=== PATIENT | male | born 1945 | race Caucasian/White ===

== ENCOUNTER → 2017-02-19 | Outpatient (CLI) | payer OTHER, MEDICARE ==
[2017-02-19 16:30] LABS: ALT/SGPT 22 U/L (12-78); AST/SGOT 13 U/L (15-37); BLOOD UREA NITROGEN 22 mg/dl (7-18); BUN/CREATININE RATIO 25.3 (10-20); CALCIUM 8.9 mg/dl (8.5-10.1); CARBON DIOXIDE 32 mmol/L (21-32); CHLORIDE 101 mmol/L (98-107); CREATININE 0.87 mg/dl (0.60-1.40); GLUCOSE 84 mg/dl (70-99); POTASSIUM 3.4 mmol/L (3.5-5.1); SODIUM 139 mmol/L (136-145)
[2017-02-19 16:33] LABS: ALB/GLOB RATIO 1.1 (0.9-2); ALKALINE PHOSPHATASE 109 U/L (45-117)
== END | disposition home or self-care (01) ==
LOC: C.LAB1850 14:47
PROVIDERS: ATTEND Internal Medicine
DX: R31.0 Gross hematuria (principal); N35.9 Urethral stricture, unspecified; R33.9 Retention of urine, unspecified; R60.0 Localized edema

== ENCOUNTER → 2017-03-27 | Outpatient (CLI) | payer OTHER, MEDICARE ==
[~2017-03-27] MED LIST: CIPR1TAB11 PO; HLD.5 PO; LCTX PO; MULT-506 PO; OXYC-57 PO; PHEN-876 PO; SERT-234 PO; SULF800T23 PO
--- NOTE | 2017-03-30 14:24 | CODING QUERY NO DIAGNOSIS ---
TREATMENT RENDERED WITHOUT A DIAGNOSIS 44 To promote full compliance with coding requirements relating to patient care, physician participation is requested in all cases of protein purification scientist uncertainty. Please assist us with providing a diagnosis/symptom for the test(s) below: A diagnosis/symptom was not documented on your Order. A valid diagnosis/symptom is required to bill all insurances. Please remember that we are unable to code a diagnosis of rule out, probable, possible, questionable, or suspected. DOS 03/27/17 Tests that require a diagnosis: * URINE C&S DIAGNOSIS: Provider Signature: Date: Thank you Tia Fitzgerald Health Information Management Once completed, please kindly fax back to [phone] For questions please call [phone]
== END | disposition home or self-care (01) ==
LOC: C.LABSPEC 16:28
PROVIDERS: ATTEND Internal Medicine
DX: R39.9 Unspecified symptoms and signs involving the genitourinary system (principal)

== ENCOUNTER → 2017-04-20 | Outpatient (CLI) | payer OTHER, MEDICARE | END | disposition home or self-care (01) | LOC: C.LABSPEC 13:07 | PROVIDERS: ATTEND Internal Medicine | DX: R39.9 Unspecified symptoms and signs involving the genitourinary system (principal) ==

== ENCOUNTER → 2017-04-23 | Outpatient (CLI) | payer OTHER, MEDICARE | END | disposition home or self-care (01) | LOC: C.LABSPEC 15:30 | PROVIDERS: ATTEND Internal Medicine | DX: N39.0 Urinary tract infection, site not specified (principal) ==

== ENCOUNTER 2017-05-13 14:46 | Emergency (ER) | payer OTHER, MEDICARE ==
[~2017-05-13] VITALS: Ht 177.8 cm; Wt 69.5 kg
[2017-05-13 15:14] VITALS: TEMP 36.6; Ht 177.8 cm; Wt 69.5 kg
--- NOTE | 2017-05-13 16:09 | EMERGENCY ROOM VISIT NOTE ---
History Report prepared by Yesenia: Hair Donis Under the Supervision of: Dr. Vineet Vargas M.D. First contact with patient: 15:59 Chief Complaint: CATHETER REPLACEMENT Stated Complaint: SUPER PUBIC CATHERTER FELL OUT History of Present Illness The patient is a 71 year old male who presents to the Emergency Room with complaints of a persistent need for a suprapubic Venegas catheter replacement today. Per the patient's caregiver, the patient has had a suprapubic catheter for "years", and gets it changed every month by [facility]. However, this morning, the catheter popped out and home care could not get in back in. The patient states that he has no pain at the moment. He just finished an antibiotic a week ago for a UTI. Source of History: patient, caregiver Onset: Today Position: other (suprapubic - Venegas catheter) Symptom Intensity: catheter fell out Quality: other (needs replacement) Timing: other (persistent need) Note: Pt denies pain. Review of Systems See HPI for pertinent positives & negatives. A total of 6 systems reviewed and were otherwise negative. Past Medical & Surgical Medical Problems: (1) Suprapubic catheter Family History Family history limited secondary to patient's advanced age. Social History Smoking Status: Never Smoker Smokeless Tobacco Use: No Marital Status: Occupation Status: retired Current/Historical Medications Scheduled Sertraline (Zoloft), 100 MG PO DAILY Allergies Coded Allergies: No Known Allergies (Unverified , 05/13/17) Physical Exam Vital Signs Date Time Temp Pulse Resp B/P (MAP) Pulse Ox O2 Delivery O2 Flow Rate FiO2 05/13/17 17:10 78 16 159/94 97 05/13/17 15:14 36.6 78 20 159/103 97 Room Air Physical Exam GENERAL: Patient is chronically unwell appearing and cachectic appearing, in no distress. HEENT: No acute trauma, normocephalic atraumatic, mucous membranes moist, no nasal congestion, no scleral icterus. NECK: No stridor, no adenopathy, no meningismus, trachea is midline. ABDOMEN: Soft, nontender, has urostomy port suprapubic region, no drainage, no tenderness, no erythema, no swelling. EXTREMITIES: Normal motion all extremities, no cyanosis, no edema. NEUROLOGIC: Alert and oriented, no acute motor or sensory deficits, no focal weakness, cranial nerves grossly intact. SKIN: No rash, no jaundice, no diaphoresis. Medical Decision & Procedures ED Course 1603: The patient was evaluated in room C1B. A complete history and physical exam was performed. 1621: I discussed the patient with Dr. Jered ECHOLS urology - says normal Venegas cather 16 [place]an. Lay patient flat, clean with Betadine, insert, no need for antibiotics. 1635: After multiple attempts I was able to get a 10-[place]an Venegas catheter in suprapubic region. Both the 16 and 14 failed secondary to inflammation of suprapubic port. 1655: Reevaluated the patient and he is resting comfortably. Discussed results and discharge instructions: he verbalized understanding and agreement. The patient is ready for discharge. Medical Decision 71 yr old male with suprapubic catheter that was accidently torn out with resultant pop of balloon (or did balloon pop first). Attempted replacement by daughter though unable to do so, then attempted by home health nurse without success. I attempted to place 16, then 14 without success due to edema of urostomy area. I was able to successfully place 10F. This was done in sterile approach with betadine copious cleansing. Soft nontender abdomen and urine obtained from cathether which was easily placed atraumatically. Suspect swelling secondary to irritation due to cath being pulled out. Patient stable without complaints. With venegas in place urine is clear with some sediment. Just finished round abx and no UTI symptoms thus will hold off on abx for now. Given small venegas I suspect it will not last long and might clog up or accidently get pulled out (small 3ml balloon) and thus I feel he will need to see Urology sooner rather than later to have this replaced by them, but I do not feel it necessary to bring them in to ED on a Sunday afternoon at this time. Reviewed symptoms to monitor with daughter/patient. Advised calling Uro in am to set up appointment. Medication Reconcilliation Current Medication List: was personally reviewed by me Blood Pressure Screening Patient's blood pressure: Elevated blood pressure Blood pressure disposition: Elevated BP felt to be situational Consults Time Called: 1618 Consulting Physician: Dr. Jered ECHOLS urology Returned Call: 1621 I discussed the patient with Dr. Jered ECHOLS urology - says normal Venegas cather 16 [place]. Lay patient flat, clean with Betadine, insert, no need for antibiotics. Impression Primary Impression: Complication of catheter Additional Impression: Suprapubic catheter Scribe Attestation The scribe's documentation has been prepared under my direction and personally reviewed by me in its entirety. I confirm that the note above accurately reflects all work, treatment, procedures, and medical decision making performed by me. Departure Information Dispostion Home / Self-Care Referrals Michael Lawton D.O. Patient Instructions My [facility] Additional Instructions Call your Urologist in morning to schedule appointment to have regular sized catheter placed. Be very careful with current catheter as it is much smaller and is at increased risk of being pulled out. If pain, fevers, vomiting, or other concerns return for further evaluation. Problem Qualifiers
[2017-05-13] MEDS ORDERED: SERT-234 PO (16:26)
[2017-05-13 17:10] VITALS: BP 159/94; PULSE 78; O2SAT 97
== END 2017-05-13 17:05 | disposition home or self-care (01) ==
LOC: C.EDB 14:50 → C.EDC 17:05
DX: T83.098A Other mechanical complication of other urinary catheter, initial encounter (principal); Y84.6 Urinary catheterization as the cause of abnormal reaction of the patient, or of later complication, without mention of misadventure at the time of the procedure; Z79.899 Other long term (current) drug therapy

== ENCOUNTER → 2017-06-15 | Outpatient (CLI) | payer OTHER, MEDICARE ==
[~2017-06-15] MED LIST changes: -HLD.5 PO; -LCTX PO; -SULF800T23 PO
== END | disposition home or self-care (01) ==
LOC: C.LABSPEC 14:50
PROVIDERS: ATTEND Urology
DX: N39.0 Urinary tract infection, site not specified (principal)

== ENCOUNTER → 2017-06-15 | Outpatient (CLI) | payer OTHER, MEDICARE ==
[~2017-06-15] MED LIST changes: +OPTIRAY 320 IV PRN
--- NOTE | 2017-06-15 08:41 | DIAGNOSTIC IMAGING REPORT ---
CT ABD/PELVIS COMBO CLINICAL HISTORY: R31.0 Gross [id number] Urethral [id number] Urinary retention COMPARISON STUDY: None. TECHNIQUE: Unenhanced images were obtained to the abdomen and pelvis. The patient was injected with 50 cc of Optiray 320. After 5 minute delay, the patient is rescanned in a dynamic helical fashion during the additional administration of 69 cc of Optiray 320. A dose lowering technique was utilized adhering to the principles of ALARA. CT DOSE: 1206.58 mGycm FINDINGS: Lower chest: The heart is normal in size and configuration, without pericardial effusion. The lung bases and pleural spaces are clear. Liver: The contrast-enhanced liver is normal in size, contour, and attenuation. There is no intrahepatic biliary ductal dilatation. The hepatic veins and portal veins are patent. Gallbladder: Cholelithiasis Spleen: Normal in size and attenuation. Pancreas: Unremarkable. Adrenal glands: Unremarkable. Kidneys: There is a nonobstructing 3 mm left renal calculus. No ureteral calculi are visualized. There is a 33 mm left renal cyst. No solid renal masses are visualized. There is a to small to characterize 5 mm lower pole left renal hypodensity likely representing an additional cyst. No collecting system filling defects are visualized. No ureteral lesions are evident. Bowel: There are no transition zones indicate bowel obstruction. There is mild fecal retention. Peritoneum: There is no intraperitoneal free air or abdominal ascites. Vasculature: The abdominal aorta is normal in course and caliber. Adenopathy: None. Pelvic viscera: There is indwelling suprapubic catheter. The prostate is enlarged and contains calcifications. There are multiple bladder calculi, demonstrating unusual curvilinear morphology. There is anterior bladder wall thickening. Skeletal structures: No destructive osseous lesions are seen. IMPRESSION: 1. Nonobstructing 3 mm left renal calculus 2. 33 mm left renal cyst 3. No solid renal masses identified 4. Multiple bladder calculi 5. Cholelithiasis 6. Indwelling suprapubic catheter 7. Nonspecific anterior bladder wall thickening Electronically signed by: Lee Fernandez M.D. 06/15/2017 8:40 AM Dictated Date/Time: 06/15/2017 8:32 AM
== END | disposition home or self-care (01) ==
LOC: C.CTS 07:53
PROVIDERS: ATTEND Urology
DX: N35.9 Urethral stricture, unspecified (principal); R31.0 Gross hematuria; R33.9 Retention of urine, unspecified

== ENCOUNTER 2017-06-26 13:10 | Inpatient (IN) | payer OTHER, MEDICARE ==
[~2017-06-26] VITALS: Ht 172.7 cm; Wt 74.0 kg
[~2017-06-26 13:10] MED LIST changes: -ATROPINE SULFATE 0.1 MG/ML 5ML SYR IV PRN; -BELLADONNA/OPIUM SUPP 60 MG SUPP PR ONE; -CEFAZOLIN 2000MG IV PUSH 15 ML IV SCH; -EpHEDrine SULFATE INJ 50 MG/ML AMP IV PRN; -FENTANYL CITRATE INJ 50 MCG/1 ML 2 ML VIAL ONE; -HLD.5 PO; -LACTATED RINGER'S 1000ML 1,000 ML IV SCH; -LCTX PO; -LIDOCAINE HCL 2% 2 ML VIAL (20MG/ML) ONE; -LIDOCAINE/EPINEPHRINE 1% 20 ML VIAL ONE; -NURSING VERBAL MED ORDER ONE; -ONDANSETRON INJ 2 MG/ML 2 ML VIAL ONE; -OXYBUTYNIN CHLORIDE 5 MG TAB PO ONE; -OXYCODONE/ACETAMINOPHEN 7.5-325 TAB PO PRN; -PHENAZOPYRIDINE HCL 200 MG TAB PO ONE; -PROPOFOL IV EMULSION 10 MG/ML 20 ML VIAL IV ONE
[2017-06-26 13:57] LABS: BASO % 0.4 %; BASO ABS # 0.04 K/uL (0-0.2); HEMATOCRIT 40.2 % (42-52); HEMOGLOBIN 12.9 g/dL (14.0-18.0); IG# 0.09 K/uL (0.00-0.02); LYMPH % 17.3 %; LYMPH ABS # 1.77 K/uL (1.2-3.4); MEAN CORPUSCULAR HEMOGLOBIN 27.9 pg (25-34); MEAN CORPUSCULAR HGB CONC 32.1 g/dl (32-36); MEAN PLATELET VOLUME 9.2 fL (7.4-10.4); MONO % 6.6 %; MONO ABS # 0.68 K/uL (0.11-0.59); NEUT % 72.8 %; NEUT ABS # 7.45 K/uL (1.4-6.5); PLATELET COUNT 249 K/uL (130-400); RED CELL DISTRIBUTION WIDTH CV 15.3 % (11.5-14.5); RED CELL DISTRIBUTION WIDTH SD 48.7 fL (36.4-46.3); WHITE BLOOD COUNT 10.23 K/uL (4.8-10.8)
--- NOTE | 2017-06-26 14:00 | EMERGENCY ROOM VISIT NOTE ---
History Report prepared by Yesenia: Gregorio Sandy Under the Supervision of: Dr. Reji Fonseca D.O. First contact with patient: 13:38 Chief Complaint: ALTERED MENTAL STATUS Stated Complaint: confusion Nursing Triage Summary: PT HERE FROM [facility] , PT WAS [place], ATTEMPTING TO GET INTO CAR AFTER HAVING UROSTOMY CHANGED. PT HAS HX OF DEMENTIA AND PARKINSONS, PT WOULD NOT GET INTO CAR. PT BECAME VERY AGITATED DAUGHTER FEELS THAT HE IS HAVING A REACTION TO THE ANEST. FROM PROCEDURE. PT AT TIMES GET AGITATED BUT THIS WAS WORSE. PT NOT ABLE TO ANSWER ANY QUESTIONS History of Present Illness The patient is a 71 year old male who presents to the Emergency Room with complaints of persistent agitation since 0730 this morning. The patient was seen by his urologist for a procedure to change out his suprapubic catheter. Per daughter, the patient has been agitated since the procedure. She believes he may be reacting to the anesthetic. She states the patient was able to tell her that he was in excruciating pain. She notes the patient has a history of Parkinson's Disease and dementia. The patient has a history of bladder stones, though the daughter reports the stones have been breaking down with the medications he is taking. The patient had prostate surgery a few years ago. The daughter states that the patient has not had any recent falls or leg swelling. HPI limited secondary to patient's altered mental status. Source of History: family History Limited By: AMS Onset: 07 this morning Position: other (global) Quality: other (agitation) Timing: other (persistent) Note: He notes excruciating pain. Denies any recent falls or leg swelling. Review of Systems ROS limited secondary to patient's altered mental status. Past Medical & Surgical Medical Problems: (1) Complicated UTI (urinary tract infection) (2) Dementia (3) Parkinson disease (4) Suprapubic catheter Family History No pertinent family history Social History Smoking Status: Never Smoker Marital Status: Housing Status: lives with family Occupation Status: retired Current/Historical Medications Scheduled Ciprofloxacin Tab (Cipro), 500 MG PO BID Multivitamin (Multivitamin), 1 TAB PO DAILY Phenazopyridine HCl (Pyridium), 200 MG PO TID Sertraline (Zoloft), 100 MG PO noon Sulfamethoxazole-Trimethoprim (Bactrim Ds 800MG/160MG), 1 TAB PO BID Scheduled PRN Oxycodone/Acetaminophen 5MG/325MG (Percocet 5MG/325MG), 1 TABLET PO Q6H PRN for Pain Allergies Coded Allergies: No Known Allergies (Unverified , 06/26/17) Physical Exam Vital Signs Date Time Temp Pulse Resp B/P (MAP) Pulse Ox O2 Delivery O2 Flow Rate FiO2 06/26/17 21:05 139/77 06/26/17 19:27 128/69 06/26/17 17:30 85 20 96 Room Air 06/26/17 14:10 66 18 128/69 95 Room Air 06/26/17 13:21 36.5 75 16 136/80 97 Room Air Physical Exam GENERAL: Patient is asleep but awakens to loud verbal commands, does not appear to be in pain. EYES: The conjunctivae are clear. The pupils are round and reactive. EARS, NOSE, MOUTH AND THROAT: The nose is without any evidence of any deformity. Mucous membranes are dry, tongue is midline NECK: The neck is nontender and supple. RESPIRATORY: Normal respiratory effort is noted there is no evidence of wheezing rhonchi or rales CARDIOVASCULAR: Regular rate and rhythm noted there no murmurs rubs or gallops normal S1 normal S2 GASTROINTESTINAL: The abdomen is moderately distended, but soft, no guarding or rigidity appreciated. There is a suprapubic catheter in place. MUSCULOSKELETAL/EXTREMITIES: There is no evidence of gross deformity full range of motion is noted in the hips and shoulders SKIN: Venous stasis changes noted and pedal edema bilaterally. NEUROLOGIC: Awakens to verbal commands, strength symmetric but diminished, no facial droop noted. Medical Decision & Procedures ER Provider Diagnostic Interpretation: Radiology results as stated below per my review and radiologist interpretation: CT SCAN OF THE ABDOMEN AND PELVIS WITHOUT IV CONTRAST CLINICAL HISTORY: Change in mental status. COMPARISON STUDY: Abdominal CT dated 06/15/2017. TECHNIQUE: CT scan of the abdomen and pelvis is performed from the lung bases to the proximal femora. Images are reviewed in the axial, sagittal, and coronal planes. IV contrast was not administered for this examination as per the referring clinician. Note that the examination was performed in significantly suboptimal fashion without oral and IV contrast. The examination is also compromise by streak artifact from the patient's arms which could not be elevated above the abdomen as well as by motion artifact. A dose lowering technique was utilized adhering to the principles of ALARA. CT DOSE: 550.18 mGy.cm FINDINGS: Lung bases: The heart is mildly enlarged and without pericardial effusion. The coronary arteries are densely calcified. A fat-containing Bochdalek hernia is seen at the left lung base. No airspace consolidation or pleural effusion is identified. There is bibasilar scarring versus atelectasis. Liver: Evaluation of the liver is graded by streak artifact. The unenhanced liver is normal in size, contour, and attenuation. There is no intrahepatic biliary ductal dilatation. Gallbladder: There are numerous calcified gallstones. There is no CT evidence of acute cholecystitis. Spleen: Normal in size and attenuation. Pancreas: The unenhanced pancreas is grossly unremarkable but not well evaluated. Adrenal glands: Unremarkable. Kidneys: The unenhanced kidneys demonstrate cortical atrophy and are without hydronephrosis. A 5 mm nonobstructing calculus is seen in the left kidney. No right renal calculi are identified. A 3 cm cyst is noted in the left kidney. Abdominal vasculature: The abdominal aorta is normal in course and caliber noting moderate atherosclerotic calcification. Bowel: There is moderate colonic fecal retention. No bowel obstruction is seen. The appendix is well-visualized and normal. Peritoneum: There is no intraperitoneal free air or abdominal ascites. Lymphadenopathy: None. Pelvic viscera: The bladder is decompressed around a Duran catheter. A suprapubic bladder catheter is also in place. Foci of gas are noted in the bladder lumen. The bladder wall appears markedly thickened and there is pericystic inflammation. The prostate gland is enlarged and heterogeneous, measuring at least 5 cm in transverse diameter. There are bilateral fat-containing inguinal hernias. Skeletal structures: The skeletal structures are osteopenic. There is moderate to advanced lumbosacral spondylosis as well as scoliosis. No lytic or blastic lesions are seen. IMPRESSION: 1. Suboptimal examination without oral and IV contrast. The examination is also compromised by streak and motion artifact. 2. A Duran catheter and suprapubic catheter decompress the bladder. Foci of gas within the bladder lumen are nonspecific and may be related to instrumentation. The bladder wall appears markedly thickened and there is pericystic inflammation. Correlate clinically and with urinalysis for evidence of cystitis. 3. Moderate constipation. 4. Nonobstructing left renal calculus. 5. Cholelithiasis. 6. Bladder calculi seen previously are no longer identified. 7. Additional findings as above. Electronically signed by: Adin Jordan M.D. 06/26/2017 2:32 PM Dictated Date/Time: 06/26/2017 2:23 PM CHEST ONE VIEW PORTABLE CLINICAL HISTORY: ABDOMINAL PAIN/GI pain. Nausea. COMPARISON STUDY: 06/19/2017 FINDINGS: Slight bibasilar interstitial prominence considered chronic. Mid and upper lungs are entirely clear. Mild apical fibrotic change considered stable. IMPRESSION: Chronic change. No acute process. Slight bibasilar interstitial prominence. The above report was generated using voice recognition software. It may contain grammatical, syntax or spelling errors. Electronically signed by: Larry Hernandez M.D. 06/26/2017 2:25 PM Dictated Date/Time: 06/26/2017 2:[address] OF THE HEAD WITHOUT CONTRAST CLINICAL HISTORY: Altered mental status. COMPARISON STUDY: No previous studies for comparison. CT DOSE: 1228.53 mGy.cm TECHNIQUE: Helical axial images of the head were obtained without IV contrast. Automated exposure control was utilized for the study. A dose lowering technique was utilized adhering to the principles of ALARA. FINDINGS: No acute intracranial hemorrhage, midline shift or mass effect is present. Ventricular system is normal. Basilar cisterns are patent. There are nodular axial collections. White matter hypodensity suggests small vessel disease. There are no findings to suggest acute dural sinus thrombosis or acute territorial infarct. There are no significant calvarial abnormalities. Visualized portions of the sinuses and mastoid air cells are clear. IMPRESSION: No acute intracranial findings. Electronically signed by: Kane Davis M.D. 06/26/2017 4:16 PM Dictated Date/Time: 06/26/2017 4:15 PM Laboratory Results Test 06/26/17 13:20 06/26/17 13:55 Direct Bilirubin < 0.1 mg/dl (0-0.2) C-Reactive Protein 0.55 mg/dl (0-0.29) Lipase 176 U/L (73-393) Urine Color YELLOW Urine Appearance CLOUDY (CLEAR) Urine pH 8.5 (4.5-7.5) Urine Specific [place] 1.020 (1.000-1.030) Urine Protein 2+ (NEG) Urine Glucose (UA) NEG (NEG) Urine Ketones NEG (NEG) Urine Occult Blood 3+ (NEG) Urine Nitrite NEG (NEG) Urine Bilirubin NEG (NEG) Urine Urobilinogen NEG (NEG) Urine Leukocyte Esterase TRACE (NEG) Urine RBC >30 /hpf (0-4) Urine WBC 5-10 /hpf (0-5) Urine Epithelial Cells 0-5 /lpf (0-5) Urine Bacteria NEG (NEG) Laboratory results per my review. Medications Administered Medications (Trade) Dose Ordered Sig/Lauren Route Start Time Stop Time Status Last Admin Dose Admin Diphenhydramine HCl (Benadryl Inj) 25 mg NOW STAT IV 06/26/17 15:41 06/26/17 15:44 DC 06/26/17 15:54 25 MG Sodium Chloride 1,000 ml @ 999 mls/hr Q1H1M STAT IV 06/26/17 18:07 06/26/17 19:07 DC 06/26/17 18:38 999 MLS/HR Levofloxacin (Levaquin / D5W) 750 mg NOW STAT IV 06/26/17 18:07 06/26/17 18:08 DC 06/26/17 18:38 750 MG Ondansetron HCl (Zofran Inj) 4 mg NOW STAT IV 06/26/17 18:34 06/26/17 18:35 DC 06/26/17 19:24 4 MG Hydromorphone HCl (Dilaudid Inj) 0.5 mg NOW STAT IV 06/26/17 18:34 06/26/17 18:35 DC 06/26/17 19:24 0.5 MG Sodium Chloride 1,000 ml @ 50 mls/hr Q20H IV 06/26/17 21:03 07/26/17 21:02 06/27/17 07:19 50 MLS/HR ED Course 1342: The patient was evaluated in room A11B. A complete history and physical examination were performed. 1541: Ordered Benadryl 25 mg IV 1557: I reassessed the patient at this time. The family is unsure if they can care for the patient at home. The family agreed to a CT scan. 1626: I reassessed the patient at this time. The patient was in the bathroom. 1654: I reassessed the patient at this time. The patient cannot sit down. The patient appears to be in pain. 1720: I spoke with Dr. Rivera, urology. We discussed the patient's case. He recommends removing the patient's Duran catheter. 1723: I reassessed the patient at this time. I removed the patient's Duran catheter. Medical Decision Prior records/ancillary studies reviewed and summarized above. Nursing notes reviewed. Additional history obtained from daughter. The patient's history was concerning for altered mental status. Differential diagnosis: Etiologies such as metabolic, infection, hypoglycemia, electrolyte abnormalities , cardiac sources, intracerebral event, toxicologic, neurologic, as well as others were entertained. The patient is a 71-year-old male who presented to the emergency department with family members for an evaluation of acute agitation. The patient recently had a urologic procedure. The patient has a suprapubic catheter as well as a Duran catheter. The patient was very difficult to evaluate due to underlying dementia and Parkinson's. He appears to have very significant difficulty sitting. I initially thought this was secondary to the Duran catheter because he did have significant pain on his penis and perineum. The Duran catheter was removed. The patient was treated with pain medication. I discussed his presentation with the on-call urologist. I thought his condition was starting to improve but he still would not sit down. I was very concerned that the patient would not be safe to go home so I discussed his case with the on-call [facility] hospitalist. They have agreed to evaluate the patient in the emergency department for further management and disposition. Medication Reconcilliation Current Medication List: was personally reviewed by me Blood Pressure Screening Patient's blood pressure: Elevated blood pressure Blood pressure disposition: Elevated BP felt to be situational Consults Time Called: 1702 Consulting Physician: Dr. Rivera, urology Returned Call: [address] Rivera, urology. We discussed the patient's case. He recommends replacing the patient's Duran catheter. Additional Consults: Time Called: 1810 Consulted Physician: Dr Harp Returned Call: 1835 Additional Comments: He is recommended I gave the patient pain medication and then reevaluate further Impression Primary Impression: Agitation Additional Impression: UTI (urinary tract infection) Scribe Attestation The scribe's documentation has been prepared under my direction and personally reviewed by me in its entirety. I confirm that the note above accurately reflects all work, treatment, procedures, and medical decision making performed by me. Departure Information Referrals Sheyla Bryan M.D. (PCP) Patient Instructions [facility] Problem Qualifiers Additional Impression: UTI (urinary tract infection) Urinary tract infection type: catheter-associated UTI Indwelling urinary catheter type: unspecified Encounter type: initial encounter Qualified Codes : T83.511A - Infection and inflammatory reaction due to indwelling urethral catheter, initial encounter; N39.0 - Urinary tract infection, site not specified
[2017-06-26 14:13] LABS: ALBUMIN 3.5 gm/dl (3.4-5.0); ALT/SGPT 37 U/L (12-78); BLOOD UREA NITROGEN 21 mg/dl (7-18); CALCIUM 8.2 mg/dl (8.5-10.1); CARBON DIOXIDE 25 mmol/L (21-32); CREATININE 0.91 mg/dl (0.60-1.40); GLUCOSE 139 mg/dl (70-99); LIPASE 176 U/L (73-393); POTASSIUM 3.8 mmol/L (3.5-5.1); SODIUM 138 mmol/L (136-145)
[2017-06-26 14:15] LABS: ALKALINE PHOSPHATASE 91 U/L (45-117); AST/SGOT 25 U/L (15-37); TOTAL PROTEIN 6.7 gm/dl (6.4-8.2)
--- NOTE | 2017-06-26 14:27 | DIAGNOSTIC IMAGING REPORT ---
CHEST ONE VIEW PORTABLE CLINICAL HISTORY: ABDOMINAL PAIN/GI pain. Nausea. COMPARISON STUDY: 06/19/2017 FINDINGS: Slight bibasilar interstitial prominence considered chronic. Mid and upper lungs are entirely clear. Mild apical fibrotic change considered stable. IMPRESSION: Chronic change. No acute process. Slight bibasilar interstitial prominence. The above report was generated using voice recognition software. It may contain grammatical, syntax or spelling errors. Electronically signed by: Larry Hernandez M.D. 06/26/2017 2:25 PM Dictated Date/Time: 06/26/2017 2:24 PM
--- NOTE | 2017-06-26 14:33 | DIAGNOSTIC IMAGING REPORT ---
CT SCAN OF THE ABDOMEN AND PELVIS WITHOUT IV CONTRAST CLINICAL HISTORY: Change in mental status. COMPARISON STUDY: Abdominal CT dated 06/15/2017. TECHNIQUE: CT scan of the abdomen and pelvis is performed from the lung bases to the proximal femora. Images are reviewed in the axial, sagittal, and coronal planes. IV contrast was not administered for this examination as per the referring clinician. Note that the examination was performed in significantly suboptimal fashion without oral and IV contrast. The examination is also compromise by streak artifact from the patient's arms which could not be elevated above the abdomen as well as by motion artifact. A dose lowering technique was utilized adhering to the principles of ALARA. CT DOSE: 550.18 mGy.cm FINDINGS: Lung bases: The heart is mildly enlarged and without pericardial effusion. The coronary arteries are densely calcified. A fat-containing Bochdalek hernia is seen at the left lung base. No airspace consolidation or pleural effusion is identified. There is bibasilar scarring versus atelectasis. Liver: Evaluation of the liver is graded by streak artifact. The unenhanced liver is normal in size, contour, and attenuation. There is no intrahepatic biliary ductal dilatation. Gallbladder: There are numerous calcified gallstones. There is no CT evidence of acute cholecystitis. Spleen: Normal in size and attenuation. Pancreas: The unenhanced pancreas is grossly unremarkable but not well evaluated. Adrenal glands: Unremarkable. Kidneys: The unenhanced kidneys demonstrate cortical atrophy and are without hydronephrosis. A 5 mm nonobstructing calculus is seen in the left kidney. No right renal calculi are identified. A 3 cm cyst is noted in the left kidney. Abdominal vasculature: The abdominal aorta is normal in course and caliber noting moderate atherosclerotic calcification. Bowel: There is moderate colonic fecal retention. No bowel obstruction is seen. The appendix is well-visualized and normal. Peritoneum: There is no intraperitoneal free air or abdominal ascites. Lymphadenopathy: None. Pelvic viscera: The bladder is decompressed around a Duran catheter. A suprapubic bladder catheter is also in place. Foci of gas are noted in the bladder lumen. The bladder wall appears markedly thickened and there is pericystic inflammation. The prostate gland is enlarged and heterogeneous, measuring at least 5 cm in transverse diameter. There are bilateral fat-containing inguinal hernias. Skeletal structures: The skeletal structures are osteopenic. There is moderate to advanced lumbosacral spondylosis as well as scoliosis. No lytic or blastic lesions are seen. IMPRESSION: 1. Suboptimal examination without oral and IV contrast. The examination is also compromised by streak and motion artifact. 2. A Duran catheter and suprapubic catheter decompress the bladder. Foci of gas within the bladder lumen are nonspecific and may be related to instrumentation. The bladder wall appears markedly thickened and there is pericystic inflammation. Correlate clinically and with urinalysis for evidence of cystitis. 3. Moderate constipation. 4. Nonobstructing left renal calculus. 5. Cholelithiasis. 6. Bladder calculi seen previously are no longer identified. 7. Additional findings as above. Electronically signed by: Adin Jordan M.D. 06/26/2017 2:32 PM Dictated Date/Time: 06/26/2017 2:23 PM
[2017-06-26] MEDS ORDERED: DiphenhydrAMINE HCL 50 MG/ML VIAL IV STA (15:41)
--- NOTE | 2017-06-26 16:18 | DIAGNOSTIC IMAGING REPORT ---
CT OF THE HEAD WITHOUT CONTRAST CLINICAL HISTORY: Altered mental status. COMPARISON STUDY: No previous studies for comparison. CT DOSE: 1228.53 mGy.cm TECHNIQUE: Helical axial images of the head were obtained without IV contrast. Automated exposure control was utilized for the study. A dose lowering technique was utilized adhering to the principles of ALARA. FINDINGS: No acute intracranial hemorrhage, midline shift or mass effect is present. Ventricular system is normal. Basilar cisterns are patent. There are nodular axial collections. White matter hypodensity suggests small vessel disease. There are no findings to suggest acute dural sinus thrombosis or acute territorial infarct. There are no significant calvarial abnormalities. Visualized portions of the sinuses and mastoid air cells are clear. IMPRESSION: No acute intracranial findings. Electronically signed by: Kane Davis M.D. 06/26/2017 4:16 PM Dictated Date/Time: 06/26/2017 4:15 PM
[2017-06-26] MEDS ORDERED: SODIUM CHLORIDE 0.9% 1000ML 1,000 ML IV STA (18:07)
[2017-06-26] MEDS ORDERED: LEVAQUIN 750MG / 150ML D5W IV STA (18:07)
[2017-06-26] MEDS ORDERED: ONDANSETRON INJ 2 MG/ML 2 ML VIAL IV STA (18:34)
[2017-06-26] MEDS ORDERED: HYDROmorphone INJ 0.5 MG/0.5 ML SYR IV STA (18:34)
[2017-06-26] MEDS ORDERED: HYDROmorphone INJ 1 MG/ML SYR IV STA (19:31)
[2017-06-26] MEDS ORDERED: ZOLPIDEM TARTRATE 5 MG TAB PO PRN ×2 (21:15)
[2017-06-26] MEDS ORDERED: OXYCODONE/ACETAMINOPHEN 5-325 TAB PO PRN (21:15)
[2017-06-26] MEDS ORDERED: MAGNESIUM HYDROXIDE SUSP 30 ML UDC PO PRN (21:15)
[2017-06-26] MEDS ORDERED: POLYETHYLENE (MIRALAX) 17 GM PACK PO PRN (21:15)
[2017-06-26] MEDS ORDERED: ACETAMINOPHEN 325 MG TAB PO PRN (21:15)
[2017-06-26] MEDS ORDERED: ALUMINUM/MAGNESIUM/SIMETH (MAALOX MAX) 30 ML UDC PO PRN (21:15)
[2017-06-26] MEDS ORDERED: ONDANSETRON INJ 2 MG/ML 2 ML VIAL IV PRN (21:15)
[2017-06-26] MEDS ORDERED: CEFEPIME IV 2,000 MG in DEXTROSE 5% 100ML 100 ML IV SCH (21:20)
[2017-06-26] MEDS ORDERED: VANCOMYCIN CONSULT ACTIVE PRN (21:30)
[2017-06-26] MEDS ORDERED: FAMOTIDINE IV INJ 20 MG in DEXTROSE 5% 100ML 100 ML IV SCH (21:30)
--- NOTE | 2017-06-26 21:42 | History and Physical ---
History & Physical Date & Time of Service: Jun 26, 2017 at 21:24 Chief Complaint: confusion Primary Care Physician: Sheyla Bryan M.D. History of Present Illness Source: family, hospital records 71-year-old man with past medical history of Lewy body dementia/parkinsonism and obstructive uropathy with chronic suprapubic catheter. Patient presented today for catheter exchange and developed severe agitation and intractable abdominal pain. In his way out he suddenly crumbled from the pain in the cold code purple with him. He was brought to the ER and was found to have severe urinary tract infection. Patient was getting Dilaudid to control his severe agonizing pain. After that he became slightly lethargic. As per discussion with his daughter. Patient despite of confusion as a baseline he is pleasant and follows simple commands. Daughter stated that he is a full code. Family History No pertinent family history Social History Smoking Status: Never Smoker Marital Status: Occupational Status: retired Allergies Coded Allergies: No Known Allergies (Unverified , 06/26/17) Home Medications Scheduled Ciprofloxacin Tab (Cipro), 500 MG PO BID Multivitamin (Multivitamin), 1 TAB PO DAILY Phenazopyridine HCl (Pyridium), 200 MG PO TID Sertraline (Zoloft), 100 MG PO noon Sulfamethoxazole-Trimethoprim (Bactrim Ds 800MG/160MG), 1 TAB PO BID Scheduled PRN Oxycodone/Acetaminophen 5MG/325MG (Percocet 5MG/325MG), 1 TABLET PO Q6H PRN for Pain Review of Systems Due to patient mental status review of system was unobtainable/unreliable We'll attempt to obtain review of system as needed from staff and family Physical Exam Vital Signs Date Time Temp Pulse Resp B/P (MAP) Pulse Ox O2 Delivery O2 Flow Rate FiO2 06/26/17 21:05 139/77 06/26/17 19:27 128/69 06/26/17 17:30 85 20 96 Room Air 06/26/17 14:10 66 18 128/69 95 Room Air 06/26/17 13:21 36.5 75 16 136/80 97 Room Air Physical examination General patient appears in severe distress, screaming from pain HEENT: Atraumatic , normocephalic /no jaundice /no pallor /anicteric /no dry mucous membrane /normal external ear inspection Neck: Supple /no swelling /central trach Heart: S1/S2 normal/regular rate and rhythm/no gallop /no rub /no murmur Lungs: Clear to auscultation bilaterally/normal chest with expansion/no rhonchi/ no rales/no wheezing/no use of accessory muscles of respiration Abdomen: Severe tenderness on palpation and distention, no rebound/no organomegaly/no pulsatile mass Musculoskeletal: No swelling/no edema/no tenderness/normal range of motion Neuro exam: Disoriented to time place and person, but followed simple command and answered simple questions and mainly mowing from Psychiatric evaluation: No depressed mood/normal affect Skin: No rash on exposed skin area/no erythema Extremity: Normal pulse/no pitting edema/no clubbing or cyanosis Endocrine/lymphatic: No obvious lymphadenopathy /no lymphedema Diagnostics Laboratory Results Results Past 24 Hours Test 06/26/17 13:20 06/26/17 13:55 06/26/17 21:12 06/26/17 21:18 Range/Units White Blood Count 10.23 4.8-10.8 K/uL Red Blood Count 4.62 4.7-6.1 M/uL Hemoglobin 12.9 14.0-18.0 g/dL Hematocrit 40.2 42-52 % Mean Corpuscular Volume 87.0 80-100 fL Mean Corpuscular Hemoglobin 27.9 25-34 pg Mean Corpuscular Hemoglobin Concent 32.1 32-36 g/dl Platelet Count 249 130-400 K/uL Mean Platelet Volume 9.2 7.4-10.4 fL Neutrophils (%) (Auto) 72.8 % Lymphocytes (%) (Auto) 17.3 % Monocytes (%) (Auto) 6.6 % Eosinophils (%) (Auto) 2.0 % Basophils (%) (Auto) 0.4 % Neutrophils # (Auto) 7.45 1.4-6.5 K/uL Lymphocytes # (Auto) 1.77 1.2-3.4 K/uL Monocytes # (Auto) 0.68 0.11-0.59 K/uL Eosinophils # (Auto) 0.20 0-0.5 K/uL Basophils # (Auto) 0.04 0-0.2 K/uL RDW Standard Deviation 48.7 36.4-46.3 fL RDW Coefficient of Variation 15.3 11.5-14.5 % Immature Granulocyte % (Auto) 0.9 % Immature Granulocyte # (Auto) 0.09 0.00-0.02 K/uL Sodium Level 138 136-145 mmol/L Potassium Level 3.8 3.5-5.1 mmol/L Chloride Level 103 98-107 mmol/L Carbon Dioxide Level 25 21-32 mmol/L Anion Gap 10.0 3-11 mmol/L Blood Urea Nitrogen 21 7-18 mg/dl Creatinine 0.91 0.60-1.40 mg/dl Est Creatinine Clear Calc Drug Dose 71.0 ml/min Estimated GFR () 97.2 Estimated GFR (Non- 83.9 BUN/Creatinine Ratio 23.5 10-20 Random Glucose 139 70-99 mg/dl Calcium Level 8.2 8.5-10.1 mg/dl Total Bilirubin 0.4 0.2-1 mg/dl Direct Bilirubin < 0.1 0-0.2 mg/dl Aspartate Amino Transf (AST/SGOT) 25 15-37 U/L Alanine Aminotransferase (ALT/SGPT) 37 12-78 U/L Alkaline Phosphatase 91 45-117 U/L Total Protein 6.7 6.4-8.2 gm/dl Albumin 3.5 3.4-5.0 gm/dl Lipase 176 73-393 U/L Urine Color YELLOW Urine Appearance CLOUDY CLEAR Urine pH 8.5 4.5-7.5 Urine Specific [place] 1.020 1.000-1.030 Urine Protein 2+ NEG Urine Glucose (UA) NEG NEG Urine Ketones NEG NEG Urine Occult Blood 3+ NEG Urine Nitrite NEG NEG Urine Bilirubin NEG NEG Urine Urobilinogen NEG NEG Urine Leukocyte Esterase TRACE NEG Urine RBC >30 0-4 /hpf Urine WBC 5-10 0-5 /hpf Urine Epithelial Cells 0-5 0-5 /lpf Urine Bacteria NEG NEG Microbiology Results 06/26/17 Blood Culture, Ordered Pending 06/26/17 Blood Culture, Ordered Pending 06/26/17 Urine Culture, Received Pending Impression Assessment and Plan 71-year-old man with past medical history of Lewy body dementia/parkinsonism and obstructive uropathy with chronic suprapubic catheter. Patient presented today for catheter exchange and developed severe agitation and intractable abdominal pain. Has UTI. Assessment Complicated UTI present on admission catheter related Chronic suprapubic catheter status post exchange on 06/26 Parkinson's disease Lewy body dementia Obstructive uropathy Plan: Admit patient to telemetry Serial lactic acid check Repeat CBC to monitor for leukocytosis Urine culture and blood cultures Start patient on cefepime/Vanco Lactobacillus for C. difficile prevention Fall precaution Pain management IV fluid hydration CT scan abdomen reviewed, no air under the diaphragm Consult urology for reevaluation. Heparin subcu for DVT plaque Pepcid for GI peripheral Resuscitation Status VTE Prophylaxis Will order VTE Prophylaxis: Yes
[2017-06-26 22:00] LABS: HEMATOCRIT 36.9 % (42-52); HEMOGLOBIN 11.8 g/dL (14.0-18.0); MEAN CELL VOLUME 87.9 fL (80-100); MEAN CORPUSCULAR HEMOGLOBIN 28.1 pg (25-34); MEAN PLATELET VOLUME 9.3 fL (7.4-10.4); PLATELET COUNT 233 K/uL (130-400); RED CELL DISTRIBUTION WIDTH CV 15.3 % (11.5-14.5); RED CELL DISTRIBUTION WIDTH SD 48.7 fL (36.4-46.3); WHITE BLOOD COUNT 9.73 K/uL (4.8-10.8)
[2017-06-26] MEDS ORDERED: HYDROmorphone INJ 2 MG/ML SYR/VIAL ONE (22:05)
[2017-06-26] MEDS: SODIUM CHLORIDE 0.9% 1000ML 1,000 ML IV SCH (22:10)
[2017-06-26] MEDS ORDERED: CEFEPIME IV 2,000 MG in SYRINGE 7.5 ML IV ONE (22:15)
[2017-06-26] MEDS ORDERED: VANCOMYCIN IV 1,750 MG in SODIUM CHLORIDE 0.9% 500ML 500 ML IV ONE (22:30)
[2017-06-26 23:30] VITALS: Ht 172.7 cm; Wt 74.0 kg
[2017-06-27] MEDS ORDERED: HYDROmorphone INJ 1 MG/ML SYR IV PRN
[2017-06-27 00:07] VITALS: BP 173/83; PULSE 113; TEMP 36.8; O2SAT 95
[2017-06-27] MEDS: FAMOTIDINE IV INJ 20 MG in SYRINGE 3 ML IV SCH ×2 (02:21→13:13)
--- NOTE | 2017-06-27 02:38 | Pharmacy Progress Note ---
Pharmacy Abx Dose Short Note Date of Service Jun 27, 2017. Assessment & Plan Assessment 71 year old male with a history of Lewey body Parkinson's disease and a chronic suprapublic catheter who underwent a urologic procedure for kidney stones on . He collapsed after surgery and was brought to the ER where is was discovered he has a UTI. Patient started on vancomycin and cefepime. Has a history of cabrera-sensitive Enterococcus. Was on Ciprofloxacin prior to procedure and discharged on Bactrim after procedure (did not have chance to take) Plan Vancomycin * Loading dose of vancomycin 1750 mg IV x 1 (25 mg/kg) * Maintenance dose of vancomycin 1000 mg IV q12 hours (15 mg/kg; population pharmacokinetics suggest half-life of 11 hours) * Goal trough level for possible UTI : ~15 mcg/mL * Trough ordered for: 06/28/17 prior to 10 AM dose Pharmacy will continue to follow and will adjust dose/frequency as necessary. Thank you.
[2017-06-27 03:55] VITALS: BP 173/85; PULSE 89; TEMP 37.2; O2SAT 93
[2017-06-27] MEDS ORDERED: INFLUENZA VIRUS QUAD VACCINE 0.5 ML SYR IM. ONE (05:45)
[2017-06-27] MEDS ORDERED: INFLUENZA ADMINISTRATION CHARGE ONE (05:45)
[2017-06-27] MEDS ORDERED: PNEUMOCOCCAL ADMINISTRATION CHARGE ONE (05:45)
[2017-06-27] MEDS ORDERED: PNEUMOCOCCAL POLYSACCHARIDES 25 MCG/0.5 ML VIAL/SYR IM. ONE (05:45)
[2017-06-27 06:13] LABS: BASO % 0.2 %; BASO ABS # 0.02 K/uL (0-0.2); EOS % 1.3 %; EOS ABS # 0.17 K/uL (0-0.5); HEMATOCRIT 37.9 % (42-52); HEMOGLOBIN 12.1 g/dL (14.0-18.0); IG# 0.05 K/uL (0.00-0.02); LYMPH ABS # 1.31 K/uL (1.2-3.4); MEAN CELL VOLUME 88.1 fL (80-100); MEAN CORPUSCULAR HEMOGLOBIN 28.1 pg (25-34); MEAN CORPUSCULAR HGB CONC 31.9 g/dl (32-36); MONO ABS # 0.91 K/uL (0.11-0.59); NEUT % 81.1 %; PLATELET COUNT 210 K/uL (130-400); RED CELL DISTRIBUTION WIDTH CV 15.4 % (11.5-14.5); RED CELL DISTRIBUTION WIDTH SD 49.4 fL (36.4-46.3); WHITE BLOOD COUNT 13.06 K/uL (4.8-10.8)
[2017-06-27 06:21] LABS: INR 1.1 (0.9-1.1); PTT PATIENT 30.1 SECONDS (21.0-31.0)
[2017-06-27] MEDS: CEFEPIME IV 2,000 MG in SYRINGE 7.5 ML IV SCH ×3 (06:33→21:30)
[2017-06-27 06:45] LABS: HEMOGLOBIN A1C 5.7 % (4.5-5.6)
[2017-06-27 06:58] LABS: CALCIUM 8.2 mg/dl (8.5-10.1); CREATININE 0.75 mg/dl (0.60-1.40); PHOSPHORUS 3.3 mg/dl (2.5-4.9); POTASSIUM 3.6 mmol/L (3.5-5.1); TOTAL PROTEIN 6.1 gm/dl (6.4-8.2)
[2017-06-27] MEDS: LACTOBACILLUS ACIDOPHILUS (FLORANEX) TAB PO SCH ×3 (07:14→17:24)
[2017-06-27] MEDS: PHENAZOPYRIDINE HCL 200 MG TAB PO SCH ×3 (07:15→21:00)
[2017-06-27] MEDS: SERTRALINE HCL 100 MG TAB PO SCH (07:15)
[2017-06-27] MEDS: SODIUM CHLORIDE 0.9% 1000ML 1,000 ML IV SCH (07:19)
[2017-06-27] MEDS: HEPARIN SOD 5000 UNIT/0.5 ML CARP SQ SCH ×3 (07:21→21:34)
[2017-06-27 08:13] VITALS: O2SAT 93
[2017-06-27] MEDS ORDERED: VANCOMYCIN TROUGH ONE (09:30)
--- NOTE | 2017-06-27 10:36 | Urology Consultation ---
History General Date of Service: Jun 27, 2017. Chief Complaint: agitation, abdominal pain, confusion Primary Care Physician: Sheyla Bryan M.D. Pt seen a urologist before?: Yes (Dr. Lawton ) If yes, why?: neurogenic bladder, bladder calculi History of Present Illness 71 yo male s/p cystolithopaxy and replacement of suprapubic tube yesterday by Dr. Lawton. The pt was admitted after becoming increasingly agitated and c/o abdominal pain after the procedure yesterday. This morning he is very confused stating he wants to speak with his daughter this morning. When I attempted to explain to him that he was in the hospital, and the nursing staff was trying to call his daughter, he became upset stating he was not sick. He then questioned if she was sick, and was very confused about how she would call him without his phone. I attempted to explain that he has a phone in his room we would transfer her to, but this was futile at best. The pt did deny pain this morning. Urine drainage bag draining orange urine this morning. He is currently afebrile. White count noted to have increased to 13.06 this morning. Blood and urine cultures pending. He is noted to have had a positive pre-op UC&S growing enterococcus, and was placed on a 10 day course of Cipro on 06-15-17. Cr noted to be normal. Imaging Imaging: CT Laboratory Last 24 Hours Test 06/26/17 13:20 06/26/17 13:55 06/26/17 21:18 06/26/17 21:30 White Blood Count 10.23 K/uL 9.73 K/uL Red Blood Count 4.62 M/uL 4.20 M/uL Hemoglobin 12.9 g/dL 11.8 g/dL Hematocrit 40.2 % 36.9 % Mean Corpuscular Volume 87.0 fL 87.9 fL Mean Corpuscular Hemoglobin 27.9 pg 28.1 pg Mean Corpuscular Hemoglobin Concent 32.1 g/dl 32.0 g/dl Platelet Count 249 K/uL 233 K/uL Mean Platelet Volume 9.2 fL 9.3 fL Neutrophils (%) (Auto) 72.8 % Lymphocytes (%) (Auto) 17.3 % Monocytes (%) (Auto) 6.6 % Eosinophils (%) (Auto) 2.0 % Basophils (%) (Auto) 0.4 % Neutrophils # (Auto) 7.45 K/uL Lymphocytes # (Auto) 1.77 K/uL Monocytes # (Auto) 0.68 K/uL Eosinophils # (Auto) 0.20 K/uL Basophils # (Auto) 0.04 K/uL RDW Standard Deviation 48.7 fL 48.7 fL RDW Coefficient of Variation 15.3 % 15.3 % Immature Granulocyte % (Auto) 0.9 % Immature Granulocyte # (Auto) 0.09 K/uL Sodium Level 138 mmol/L Potassium Level 3.8 mmol/L Chloride Level 103 mmol/L Carbon Dioxide Level 25 mmol/L Anion Gap 10.0 mmol/L Blood Urea Nitrogen 21 mg/dl Creatinine 0.91 mg/dl Est Creatinine Clear Calc Drug Dose 71.0 ml/min Estimated GFR () 97.2 Estimated GFR (Non- 83.9 BUN/Creatinine Ratio 23.5 Random Glucose 139 mg/dl Calcium Level 8.2 mg/dl Total Bilirubin 0.4 mg/dl Direct Bilirubin < 0.1 mg/dl Aspartate Amino Transf (AST/SGOT) 25 U/L Alanine Aminotransferase (ALT/SGPT) 37 U/L Alkaline Phosphatase 91 U/L C-Reactive Protein 0.55 mg/dl Total Protein 6.7 gm/dl Albumin 3.5 gm/dl Lipase 176 U/L Urine Color YELLOW Urine Appearance CLOUDY Urine pH 8.5 Urine Specific [place] 1.020 Urine Protein 2+ Urine Glucose (UA) NEG Urine Ketones NEG Urine Occult Blood 3+ Urine Nitrite NEG Urine Bilirubin NEG Urine Urobilinogen NEG Urine Leukocyte Esterase TRACE Urine RBC >30 /hpf Urine WBC 5-10 /hpf Urine Epithelial Cells 0-5 /lpf Urine Bacteria NEG Lactic Acid Level 1.2 mmol/L Test 06/27/17 05:51 06/27/17 05:52 Lactic Acid Level 0.8 mmol/L White Blood Count 13.06 K/uL Red Blood Count 4.30 M/uL Hemoglobin 12.1 g/dL Hematocrit 37.9 % Mean Corpuscular Volume 88.1 fL Mean Corpuscular Hemoglobin 28.1 pg Mean Corpuscular Hemoglobin Concent 31.9 g/dl Platelet Count 210 K/uL Mean Platelet Volume 9.0 fL Neutrophils (%) (Auto) 81.1 % Lymphocytes (%) (Auto) 10.0 % Monocytes (%) (Auto) 7.0 % Eosinophils (%) (Auto) 1.3 % Basophils (%) (Auto) 0.2 % Neutrophils # (Auto) 10.60 K/uL Lymphocytes # (Auto) 1.31 K/uL Monocytes # (Auto) 0.91 K/uL Eosinophils # (Auto) 0.17 K/uL Basophils # (Auto) 0.02 K/uL RDW Standard Deviation 49.4 fL RDW Coefficient of Variation 15.4 % Immature Granulocyte % (Auto) 0.4 % Immature Granulocyte # (Auto) 0.05 K/uL Prothrombin Time 11.4 SECONDS Prothromb Time International Ratio 1.1 Activated Partial Thromboplast Time 30.1 SECONDS Partial Thromboplastin Ratio 1.2 Sodium Level 138 mmol/L Potassium Level 3.6 mmol/L Chloride Level 104 mmol/L Carbon Dioxide Level 29 mmol/L Anion Gap 6.0 mmol/L Blood Urea Nitrogen 14 mg/dl Creatinine 0.75 mg/dl Est Creatinine Clear Calc Drug Dose 86.1 ml/min Estimated GFR () 106.2 Estimated GFR (Non- 91.6 BUN/Creatinine Ratio 18.2 Random Glucose 91 mg/dl Estimated Average Glucose 117 mg/dl Hemoglobin A1c 5.7 % Calcium Level 8.2 mg/dl Phosphorus Level 3.3 mg/dl Magnesium Level 2.1 mg/dl Total Bilirubin 0.5 mg/dl Aspartate Amino Transf (AST/SGOT) 19 U/L Alanine Aminotransferase (ALT/SGPT) 27 U/L Alkaline Phosphatase 85 U/L Total Protein 6.1 gm/dl Albumin 3.0 gm/dl Globulin 3.1 gm/dl Albumin/Globulin Ratio 1.0 Problem List Medical Problems: (1) Agitation Status: Acute (2) Complication of catheter Status: Acute (3) UTI (urinary tract infection) Status: Acute Past History other (Lewy Body Demenia; Parkinon's) Past Surgical History: other (s/p cystolithopaxy and replacement of SPT on 06-26 ) Additional Comments: Pt with AMS. Unable to get any further history. Family History No pertinent family history Social History Hx Tobacco Use In Past Year?: No Smoking: non-smoker Marital status: Occupation status: retired Allergies Coded Allergies: No Known Allergies (Unverified , 06/26/17) Medications Home Medications: Home Meds and Scripts Medications Dose Route/Sig Max Daily Dose Days Date Category Dose Instructions Bactrim Ds 800MG/160MG (Sulfamethoxazole-Trimethoprim) 1 Tab Tab 1 Tab PO BID 06/26/17 Rx Pyridium (Phenazopyridine HCl) 200 Mg Tab 200 Mg PO TID 06/26/17 Rx Percocet 5MG/325MG (Oxycodone/Acetaminophen) Tab 1 Tablet PO Q6H PRN 3 06/26/17 Rx PAIN Multivitamin (Multivitamins) Tab 1 Tab PO DAILY 06/19/17 Reported ANY TIME OF DAY Cipro (Ciprofloxacin) 250 Mg Tab 500 Mg PO BID 06/19/17 Reported Zoloft (Sertraline HCl) 100 Mg Tab 100 Mg PO NOON 05/13/17 Reported Inpatient Medications: Current Inpatient Medications Medications (Trade) Dose Ordered Sig/Lauren Route Start Time Stop Time Status Last Admin Dose Admin Oxycodone/ Acetaminophen (Percocet 5-325mg Tab) 1 tab Q6H PRN PO 06/26/17 21:15 07/10/17 21:14 Phenazopyridine HCl (Pyridium Tab) 200 mg TID PO 06/27/17 09:00 07/27/17 08:59 06/27/17 07:15 200 MG Sertraline HCl (Zoloft Tab) 100 mg DAILY PO 06/27/17 09:00 07/27/17 08:59 06/27/17 07:15 100 MG Heparin Sodium (Porcine) (Heparin Sq 5000 Unit/0.5ml) 5,000 unit Q8 SQ 06/27/17 07:00 07/27/17 06:59 06/27/17 07:21 5,000 UNIT Sodium Chloride 1,000 ml @ 50 mls/hr Q20H IV 06/26/17 21:03 07/26/17 21:02 06/27/17 07:19 50 MLS/HR Acetaminophen (Tylenol Tab) 650 mg Q4H PRN PO 06/26/17 21:15 07/26/17 21:14 Al Hydrox/Mg Hydrox/Simethicone (Maalox Max Susp) 15 ml Q4H PRN PO 06/26/17 21:15 07/26/17 21:14 Magnesium Hydroxide (Milk Of Magnesia Susp) 30 ml Q12H PRN PO 06/26/17 21:15 07/26/17 21:14 Zolpidem Tartrate (Ambien Tab) 5 mg HSZ PRN PO 06/26/17 21:15 07/26/17 21:14 Ondansetron HCl (Zofran Inj) 4 mg Q6H PRN IV 06/26/17 21:15 07/26/17 21:14 Polyethylene (Miralax Powder Packet) 17 gm DAILY PRN PO 06/26/17 21:15 07/26/17 21:14 Vancomycin HCl 1000 mg/Sodium Chloride 270 ml @ 125 mls/hr Q12H IV 06/27/17 10:00 07/07/17 09:59 Miscellaneous Information (Consult) 1 ea UD PRN N/A 06/26/17 21:30 07/26/17 21:29 Lactobacillus Acidophilus (Floranex Tab) 4 tab TIDM PO 06/27/17 08:00 07/27/17 07:59 06/27/17 07:14 4 TAB Hydromorphone HCl (Dilaudid Inj) 1 mg Q4H PRN IV 06/27/17 00:00 07/11/17 00:00 Famotidine 20 mg/ Syringe 5 ml @ 2.5 mls/min Q12H IV 06/27/17 02:00 07/27/17 01:59 06/27/17 02:21 2.5 MLS/MIN Cefepime HCl 2000 mg/Syringe 20 ml @ 5 mls/min Q8H IV 06/27/17 06:00 07/06/17 23:59 06/27/17 06:33 5 MLS/MIN Review of Systems Review of Systems Additional Comments: Pt denies pain, but unable to answer any further questions for me d/t AMS. Physical Exam Vital Signs: Vital Signs Past 12 Hours Date Time Temp Pulse Resp B/P (MAP) Pulse Ox O2 Delivery O2 Flow Rate FiO2 06/27/17 08:13 93 Room Air 06/27/17 04:00 Room Air 06/27/17 03:55 37.2 89 16 173/85 (114) 93 Room Air 06/27/17 00:07 36.8 113 18 173/83 (113) 95 Room Air 06/26/17 23:00 36.5 73 20 144/69 90 06/26/17 22:40 73 20 144/69 90 Room Air Physical Exam: General Appearance: + mild distress (pt agitated) Eyes: bilateral eyes normal inspection ENT: hearing grossly normal Neck: no JVD Respiratory/Chest: no respiratory distress, no accessory muscle use Cardiovascular: no JVD Extremities: normal inspection Neurologic/Psychiatric: alert, + disoriented, + pertinent finding (agitated, confused) Skin: normal color Assessment & Plan Assessment & Plan A/P: Neurogenic bladder, hx of bladder calculi, altered mental status Pt's surgery went well from perspective. SP tube intact draining well. Continue IV abx pending culture sensitivities. Suspect his AMS is most likely r/t anesthesia and his dementia. Would avoid narcotics if possible as these are only more likely to worsen his confusion. Thanks for the consult. Will continue to follow along with primary service.
[2017-06-27 11:09] VITALS: BP 137/86; PULSE 87; TEMP 37; O2SAT 95
[2017-06-27] MEDS: VANCOMYCIN IV 1,000 MG in SODIUM CHLORIDE 0.9% 250ML 250 ML IV SCH ×2 (12:12→21:30)
[2017-06-27 12:51] VITALS: O2SAT 93
--- NOTE | 2017-06-27 14:40 | Progress Note ---
Subjective Date of Service: Jun 27, 2017. Subjective Pt evaluation today including: conversation w/ patient, physical exam, chart review, lab review, review of studies, conversation w/ business process consultant, review of inpatient medication list Pleasant, conversational, unknown name and BD but not known the year none known this facility, no complaint Problem List Medical Problems: (1) Agitation Status: Acute (2) Complication of catheter Status: Acute (3) UTI (urinary tract infection) Status: Acute Review of Systems Constitutional: + weakness, + fatigue, No fever, No chills, No sweats, No weight loss, No problem reported Eyes: No worsening of vision, No eye pain, No redness, No discharge, No diplopia ENT: No hearing loss, No unusual epistaxis, No nasal symptoms, No sore throat, No tinnitus, No dental problems, No trouble swallowing Respiratory: No cough, No sputum, No wheezing, No shortness of breath, No dyspnea on exertion, No dyspnea at rest, No hemoptysis Cardiac: No chest pain, No orthopnea, No PND, No edema, No claudication, No palpitations Abdomen: No pain, No nausea, No vomiting, No diarrhea, No constipation Musculoskeletal: No joint pain, No muscle pain, No swelling, No calf pain Male : No dysuria, No urinary frequency, No incontinence, No nocturia more than once/night, No slowing stream, No hematuria Neurologic: No memory loss, No paralysis, No weakness, No numbness/tingling, No vertigo, No balance problems Psychiatric: No depression symptoms, No anhedonism, No anxiety, No insomnia, No substance abuse Heme: No abnormal bleeding/bruising, No clotting problems, No swollen lymph nodes, No night sweats Endo: + fatigue, No excessive thirst, No excessive urination Skin: No rash, No itch, No new/changing skin lesions, No color change, No bleeding Objective Vital Signs Date Time Temp Pulse Resp B/P (MAP) Pulse Ox O2 Delivery O2 Flow Rate FiO2 06/27/17 12:51 93 Room Air 06/27/17 11:09 37.0 87 16 137/86 (103) 95 06/27/17 08:13 93 Room Air 06/27/17 04:00 Room Air 06/27/17 03:55 37.2 89 16 173/85 (114) 93 Room Air 06/27/17 00:07 36.8 113 18 173/83 (113) 95 Room Air 06/26/17 23:00 36.5 73 20 144/69 90 06/26/17 22:40 73 20 144/69 90 Room Air 06/26/17 21:42 123/63 06/26/17 21:05 139/77 06/26/17 19:27 128/69 06/26/17 17:30 85 20 96 Room Air Physical Exam General Appearance: WD/WN, no apparent distress, + thin Eyes: normal inspection, PERRL, EOMI, sclerae normal ENT: normal ENT inspection, hearing grossly normal, pharynx normal Neck: supple, no adenopathy, thyroid normal, no JVD, no carotid bruits, trachea midline Respiratory/Chest: normal breath sounds, no respiratory distress, no accessory muscle use, + decreased breath sounds Cardiovascular: regular rate, rhythm, no edema, no gallop, no JVD, no murmur Abdomen: normal bowel sounds, non tender, soft, no organomegaly, no pulsatile mass, + pertinent finding (Suprapubic catheter in place, as yellow urine) Extremities: normal range of motion, non-tender, normal inspection, no pedal edema, no calf tenderness, normal capillary refill, pelvis stable Neurologic/Psychiatric: skidder loader II-XII nml as tested, no motor/sensory deficits, alert, normal mood/affect, oriented x 3 Skin: normal color, warm/dry, no rash Lymphatic: no adenopathy Laboratory Results Last 24 Hours Test 06/26/17 21:18 06/26/17 21:30 06/27/17 05:51 06/27/17 05:52 White Blood Count 9.73 K/uL 13.06 K/uL Red Blood Count 4.20 M/uL 4.30 M/uL Hemoglobin 11.8 g/dL 12.1 g/dL Hematocrit 36.9 % 37.9 % Mean Corpuscular Volume 87.9 fL 88.1 fL Mean Corpuscular Hemoglobin 28.1 pg 28.1 pg Mean Corpuscular Hemoglobin Concent 32.0 g/dl 31.9 g/dl RDW Standard Deviation 48.7 fL 49.4 fL RDW Coefficient of Variation 15.3 % 15.4 % Platelet Count 233 K/uL 210 K/uL Mean Platelet Volume 9.3 fL 9.0 fL Lactic Acid Level 1.2 mmol/L 0.8 mmol/L Neutrophils (%) (Auto) 81.1 % Lymphocytes (%) (Auto) 10.0 % Monocytes (%) (Auto) 7.0 % Eosinophils (%) (Auto) 1.3 % Basophils (%) (Auto) 0.2 % Neutrophils # (Auto) 10.60 K/uL Lymphocytes # (Auto) 1.31 K/uL Monocytes # (Auto) 0.91 K/uL Eosinophils # (Auto) 0.17 K/uL Basophils # (Auto) 0.02 K/uL Immature Granulocyte % (Auto) 0.4 % Immature Granulocyte # (Auto) 0.05 K/uL Prothrombin Time 11.4 SECONDS Prothromb Time International Ratio 1.1 Activated Partial Thromboplast Time 30.1 SECONDS Partial Thromboplastin Ratio 1.2 Sodium Level 138 mmol/L Potassium Level 3.6 mmol/L Chloride Level 104 mmol/L Carbon Dioxide Level 29 mmol/L Anion Gap 6.0 mmol/L Blood Urea Nitrogen 14 mg/dl Creatinine 0.75 mg/dl Est Creatinine Clear Calc Drug Dose 86.1 ml/min Estimated GFR () 106.2 Estimated GFR (Non- 91.6 BUN/Creatinine Ratio 18.2 Random Glucose 91 mg/dl Estimated Average Glucose 117 mg/dl Hemoglobin A1c 5.7 % Calcium Level 8.2 mg/dl Phosphorus Level 3.3 mg/dl Magnesium Level 2.1 mg/dl Total Bilirubin 0.5 mg/dl Aspartate Amino Transf (AST/SGOT) 19 U/L Alanine Aminotransferase (ALT/SGPT) 27 U/L Alkaline Phosphatase 85 U/L Total Protein 6.1 gm/dl Albumin 3.0 gm/dl Globulin 3.1 gm/dl Albumin/Globulin Ratio 1.0 Assessment and Plan 71-year-old man admitted on June 26, 2018 because of severe agitation and intractable abdominal pain and UTI.s/p catheter exchange past medical history of Lewy body dementia/parkinsonism and obstructive uropathy with chronic suprapubic catheter. UTI catheter related Neurogenic bladder, hx of bladder calculi, SP suprapubic catheter placement, tube intact draining well. Continue IV abx pending culture sensitivities. Possible metabolic encephalopathy with AMS is most likely r/t anesthesia , or his dementia, or uti. Parkinson's disease Lewy body dementia Obstructive uropathy Continue current antibiotics, follow-up Urine culture and blood cultures Continue lactobacillus for C. difficile prevention Fall precaution, Pain management, IV fluid hydration Urology input appreciated, Continue on her home medications, Heparin subcu for DVT plaque Pepcid for GI peripheral Continued [facility] stay due to: multiple IV medications needed Discharge planning: home
[2017-06-27 15:22] VITALS: BP 145/83; PULSE 73; TEMP 36.3; O2SAT 94
[2017-06-27] MEDS ORDERED: LORAZEPAM 2 MG/ML 1 ML VIAL ONE (19:22)
[2017-06-27] MEDS ORDERED: NURSING VERBAL MED ORDER ONE (20:45)
[2017-06-28] MEDS: FAMOTIDINE IV INJ 20 MG in SYRINGE 3 ML IV SCH ×2 (02:30→14:00)
[2017-06-28] MEDS ORDERED: HALOPERIDOL LACTATE 5 MG/ML 1 ML VIAL IV STA (04:23)
[2017-06-28] MEDS ORDERED: HALOPERIDOL 0.5 MG TAB PO ONE (04:30)
[2017-06-28] MEDS ORDERED: LORAZEPAM 2 MG/ML 1 ML VIAL ONE (04:36)
[2017-06-28] MEDS ORDERED: LORAZEPAM INJ 0.5 MG in SYRINGE 0.75 ML IV ONE (04:45)
[2017-06-28] MEDS: CEFEPIME IV 2,000 MG in SYRINGE 7.5 ML IV SCH ×3 (05:35→21:58)
[2017-06-28] MEDS: HEPARIN SOD 5000 UNIT/0.5 ML CARP SQ SCH ×3 (05:39→20:13)
[2017-06-28] MEDS ORDERED: POLYETHYLENE (MIRALAX) 17 GM PACK PO PRN (08:00)
[2017-06-28] MEDS ORDERED: OLANZAPINE ZYDIS 5 MG ORALLY DIS. TAB PO PRN (08:00)
--- NOTE | 2017-06-28 08:11 | Progress Note ---
Subjective Date of Service: Jun 28, 2017. Subjective Pt evaluation today including: conversation w/ patient, chart review Voiding: venegas catheter in place (SPT draining clear, yellow urine ) 71 yo male admitted with AMS s/p cystolithopaxy. Pt sleeping this morning, but did arouse when I came in the room to look at his urine drainage bag. He is rather groggy this morning. States he is cold, but denies pain. States he is at home when asked where he is this morning. Problem List Medical Problems: (1) Agitation Status: Acute (2) Complication of catheter Status: Acute (3) UTI (urinary tract infection) Status: Acute Review of Systems Constitutional: No fever, No chills Respiratory: No shortness of breath Cardiac: No chest pain Abdomen: No pain, No nausea, No vomiting Male : No hematuria Heme: No abnormal bleeding/bruising Objective Vital Signs Date Time Temp Pulse Resp B/P (MAP) Pulse Ox O2 Delivery O2 Flow Rate FiO2 06/28/17 00:01 Room Air 06/27/17 16:00 Room Air 06/27/17 15:22 36.3 73 20 145/83 (103) 94 Room Air 06/27/17 12:51 93 Room Air 06/27/17 11:09 37.0 87 16 137/86 (103) 95 06/27/17 08:13 93 Room Air Physical Exam General Appearance: no apparent distress Eyes: normal inspection ENT: hearing grossly normal Neck: no JVD Respiratory/Chest: no respiratory distress, no accessory muscle use Cardiovascular: no JVD Extremities: normal inspection Neurologic/Psychiatric: alert, + disoriented, + pertinent finding (Pt groggy, but responsive this morning) Skin: normal color Laboratory Results Last 24 Hours Test 06/28/17 04:44 Assessment and Plan POD #2 s/p cystolithopaxy with replacement of suprapubic tube AFVSS. Pt groggy, but much less anxious today. Blood and urine cultures noted to be preliminarily negative. SPT draining clear, yellow urine. Suspect his AMS and agitation was most likely r/t anesthesia and narcotics rather than source. No further management at this time. The pt will f/u with Dr. Lawton as scheduled. Recall PRN issues. Continued [facility] stay due to: multiple IV medications needed Discharge planning: home
[2017-06-28 08:18] VITALS: BP 167/95; PULSE 86; TEMP 36.6; O2SAT 94
[2017-06-28] MEDS ORDERED: DOCUSATE SODIUM 100 MG CAP PO SCH (08:45)
[2017-06-28] MEDS: DOCUSATE SODIUM 100 MG CAP PO SCH ×2 (09:00→20:07)
[2017-06-28 09:07] LABS: CREATININE 0.65 mg/dl (0.60-1.40)
[2017-06-28] MEDS: SERTRALINE HCL 100 MG TAB PO SCH (10:03)
[2017-06-28] MEDS: LACTOBACILLUS ACIDOPHILUS (FLORANEX) TAB PO SCH ×3 (10:03→16:52)
[2017-06-28] MEDS: PHENAZOPYRIDINE HCL 200 MG TAB PO SCH ×3 (10:04→20:09)
[2017-06-28] MEDS: SODIUM CHLORIDE 0.9% 1000ML 1,000 ML IV SCH (10:17)
[2017-06-28] MEDS: VANCOMYCIN IV 1,000 MG in SODIUM CHLORIDE 0.9% 250ML 250 ML IV SCH ×2 (10:18→20:11)
[2017-06-28] MEDS: HALOPERIDOL 0.5 MG TAB PO PRN ×2 (12:05→20:06)
--- NOTE | 2017-06-28 12:52 | Pharmacy Progress Note ---
Pharmacy Antibiotic Prog Note Date of Service Jun 28, 2017. Subjective The patient is currently receiving VANCOMYCIN 1000mg IV every 12 hours. The patient is currently on day # 3 of VANCOMYCIN / CEFEPIME IV therapy. Objective Height (Feet): 5 Height (Inches): 8.00 Weight (Kilograms): 74.000 Levels: Item Value Date Time Vancomycin Level Trough 14.1 mcg/ml 06/28/17 1005 Lab Results (24hrs): Test 06/28/17 08:24 06/28/17 10:05 06/28/17 11:15 Creatinine 0.65 mg/dl (0.60-1.40) Est Creatinine Clear Calc Drug Dose 99.4 ml/min Estimated GFR () 112.7 Estimated GFR (Non- 97.2 Thyroid Stimulating Hormone (TSH) 3.670 uIu/ml (0.300-4.500) Vancomycin Level Trough 14.1 mcg/ml (SEE COMMENT) Micro Results: * Urine Cx -- NG * Blood Cx x 2-- NGTD x 2 Assessment & Plan 71yo male receiving VANCOMYCIN / CEFEPIME for sepsis secondary to UTI. Renal function is stable. VANCOMYCIN: * Patient has been receiving VANCOMYCIN 1000mg IV q12h. * Trough level drawn prior to 1000 dose today = 14.1mcg/mL. * This drug level is Subtherapeutic. * Change to VANCOMYCIN 1000mg IV every 10 hours. * Goal trough level estimate: between 15 - 20 mcg/mL. * Will recheck a trough level on 06/30/17 @ 0200. Pharmacy will continue to follow and will adjust dose/frequency as necessary. Thank you
--- NOTE | 2017-06-28 14:21 | Progress Note ---
Subjective Date of Service: Jun 28, 2017. Subjective Pt evaluation today including: conversation w/ patient, conversation w/ family , physical exam, chart review, lab review, review of studies, review of inpatient medication list Continue anxiety and agitation and sometimes even while and last night and this morning, required Ativan, and this morning required Haldol, No fever and chill, suprapubic catheter looks good, Problem List Medical Problems: (1) Agitation Status: Acute (2) Complication of catheter Status: Acute (3) UTI (urinary tract infection) Status: Acute Review of Systems Constitutional: + problem reported (limited because the patient is confusion and delirium) Objective Vital Signs Date Time Temp Pulse Resp B/P (MAP) Pulse Ox O2 Delivery O2 Flow Rate FiO2 06/28/17 08:55 Room Air 06/28/17 08:18 36.6 86 18 167/95 (119) 94 06/28/17 00:01 Room Air 06/27/17 16:00 Room Air 06/27/17 15:22 36.3 73 20 145/83 (103) 94 Room Air Physical Exam General Appearance: no apparent distress, + thin, + pertinent finding (Frail and confused) Eyes: normal inspection, PERRL, EOMI, sclerae normal ENT: normal ENT inspection, hearing grossly normal, pharynx normal Neck: supple, no adenopathy, thyroid normal, no JVD, no carotid bruits, trachea midline Respiratory/Chest: chest non-tender, normal breath sounds, no respiratory distress, no accessory muscle use, + decreased breath sounds Cardiovascular: regular rate, rhythm, no edema, no gallop, no JVD, no murmur Abdomen: normal bowel sounds, non tender, soft, no organomegaly, no pulsatile mass, + pertinent finding (Suprapubic catheter in place, has yellow urine draining) Extremities: normal range of motion, non-tender, normal inspection, no pedal edema, no calf tenderness, normal capillary refill, pelvis stable Neurologic/Psychiatric: 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, no motor/sensory deficits, alert, normal mood/affect, oriented x 3 Skin: normal color, warm/dry, no rash Lymphatic: no adenopathy Laboratory Results Last 24 Hours Test 06/28/17 08:24 06/28/17 10:05 06/28/17 11:15 Creatinine 0.65 mg/dl Est Creatinine Clear Calc Drug Dose 99.4 ml/min Estimated GFR () 112.7 Estimated GFR (Non- 97.2 Thyroid Stimulating Hormone (TSH) 3.670 uIu/ml Vancomycin Level Trough 14.1 mcg/ml Assessment and Plan 71-year-old man admitted on June 26, 2018 because of severe agitation and intractable abdominal pain and UTI.s/p catheter exchange past medical history of Lewy body dementia/parkinsonism and obstructive uropathy with chronic suprapubic catheter. UTI catheter related Neurogenic bladder, hx of bladder calculi, SP suprapubic catheter placement, tube intact draining well. Has been on IV abx, blood culture will be due 40 hours next p.m., urine culture possible nonremarkable , Urology signout, feel patient's mental status changes not related to source, they recommend patient need to be followed as outpatient Altered mental status, Possible metabolic encephalopathy Possible delirium most likely r/t anesthesia , or his dementia, or uti. Continue treat with antibiotic, follow-up with culture and sensitivity,, Haldol as needed, Head CT was checked upon admission was not remarkable, I am checking TSH, vitamin B12, folate acid, Procalcitonin, and then will go from there Parkinson's disease Lewy body dementia hx Obstructive uropathy Above conditions stable continue current medication Fall precaution, Pain management, IV fluid hydration Urology input appreciated, Continue on her home medications, Heparin subcu for DVT px Pepcid for GI px Talk to patient's daughter, update patient's conditions and care plan and will go from there, patient lives with his daughter, probably need to have placement or rehab Continued [facility] stay due to: multiple IV medications needed Discharge planning: home
[2017-06-28 15:15] VITALS: BP 153/94; PULSE 84; TEMP 36.3; O2SAT 95
[2017-06-28] MEDS ORDERED: OLANZAPINE ZYDIS 5 MG ORALLY DIS. TAB PO SCH (21:00)
[2017-06-28 23:03] VITALS: BP 142/87; PULSE 75; TEMP 36.8; O2SAT 94
[2017-06-29] VITALS: O2SAT 94
[2017-06-29] MEDS: FAMOTIDINE IV INJ 20 MG in SYRINGE 3 ML IV SCH (01:39)
[2017-06-29] MEDS: CEFEPIME IV 2,000 MG in SYRINGE 7.5 ML IV SCH (05:39)
[2017-06-29] MEDS: VANCOMYCIN IV 1,000 MG in SODIUM CHLORIDE 0.9% 250ML 250 ML IV SCH (05:40)
[2017-06-29] MEDS: HEPARIN SOD 5000 UNIT/0.5 ML CARP SQ SCH (05:49)
[2017-06-29] MEDS: DOCUSATE SODIUM 100 MG CAP PO SCH (07:48)
[2017-06-29] MEDS: HALOPERIDOL 0.5 MG TAB PO PRN (07:48)
[2017-06-29] MEDS: LACTOBACILLUS ACIDOPHILUS (FLORANEX) TAB PO SCH (07:49)
[2017-06-29] MEDS: SERTRALINE HCL 100 MG TAB PO SCH (07:53)
[2017-06-29] MEDS: PHENAZOPYRIDINE HCL 200 MG TAB PO SCH (07:53)
[2017-06-29 09:07] LABS: HEMATOCRIT 43.9 % (42-52); HEMOGLOBIN 14.5 g/dL (14.0-18.0); MEAN CELL VOLUME 86.4 fL (80-100); MEAN CORPUSCULAR HEMOGLOBIN 28.5 pg (25-34); MEAN PLATELET VOLUME 9.5 fL (7.4-10.4); PLATELET COUNT 279 K/uL (130-400); RED CELL DISTRIBUTION WIDTH CV 14.8 % (11.5-14.5); RED CELL DISTRIBUTION WIDTH SD 46.7 fL (36.4-46.3); WHITE BLOOD COUNT 10.57 K/uL (4.8-10.8)
[2017-06-29 09:23] LABS: CREATININE 0.9 mg/dl (0.60-1.40)
[2017-06-29] MEDS ORDERED: HLD.5 PO (12:15)
[2017-06-29] MEDS ORDERED: LCTX PO (12:15)
--- NOTE | 2017-06-29 12:16 | Discharge Instructions ---
Discharge Instructions Date of Service Jun 29, 2017. Admission Reason for Admission: Complicated Uti Discharge Discharge Diagnosis / Problem: UTI catheter related Discharge Goals Goal(s): Decrease discomfort, Improve function, Increase independence, Improve disease control, Improve nutritional status, Learn about illness, Diagnostic testing, Therapeutic intervention, Prevent Disease Progression, Specific goals Activity Recommendations Activity Limitations: resume your previous activity . Instructions / Follow-Up Instructions / Follow-Up you have UTI catheter related Neurogenic bladder, hx of bladder calculi, SP suprapubic catheter placement, you need to follow up with GI as instructed as outpatient you ahve Altered mental status Possible metabolic encephalopathy, in base line now you have Lewy body dementia, need 24/7 supervision , fall precaution - you need to follow up with your primary care physician in 1 week, - take medication as instructed, never overdose or any misuse, or take with alcohol, because misuse of medicine may cause organ damage or , call your primary care physician if have questions of medicaitons. - call your primary care physician OR go to local emergency room if has any fever/chill, chest pain, shortness of breathing, nausea/vomiting/abdominal pain , facial droop/slurry speech/local weakness, or if has any questions. - fall precaution - diet as instructed - you need to follow up with your subspecialist, such as urologist Current Hospital Diet Patient's current hospital diet: Regular Diet Discharge Diet Recommended Diet: Regular Diet Pending Studies Studies pending at discharge: no Laboratory Results Hemoglobin A1c Test 06/27/17 05:52 Range/Units Estimated Average Glucose 117 mg/dl Hemoglobin A1c 5.7 H 4.5-5.6 % Medical Emergencies . Who to Call and When: Medical Emergencies: If at any time you feel your situation is an emergency, please call 911 immediately. . Non-Emergent Contact Non-Emergency issues call your: Primary Care Provider, Urologist . . "Provider Documentation" section prepared by Vineet Tidwell. .
[2017-06-29 13:16] VITALS: BP 142/87; PULSE 75; TEMP 36.8; O2SAT 94
--- NOTE | 2017-06-29 16:26 | Discharge Summary ---
Discharge Summary Date of Service Jun 29, 2017. Discharge Summary Admission Date: Jun 26, 2017 at 21:11 Discharge Date: Jun 29, 2017 Principal Diagnosis: catheter related UTI Problems/Secondary Diagnoses: Neurogenic bladder, hx of bladder calculi, SP suprapubic catheter placement, Altered mental status Possible metabolic encephalopathy, Lewy body dementia, need / supervision , fall precaution Procedures: No Consultations: Urologist Medication Reconciliation New Medications: Haloperidol (Haloperidol) 0.5 Mg Tab 0.5 MG PO Q8 PRN for agitation for 3 Days, #10 TAB Lactobacillus Acidophilus (Floranex) 1 Tab Tab 4 TAB PO TIDM for 7 Days, TAB Continued Medications: Ciprofloxacin Tab (Cipro) 250 Mg Tab 500 MG PO BID, TAB Multivitamin (Multivitamin) Tab 1 TAB PO DAILY, TAB ANY TIME OF DAY Oxycodone/Acetaminophen 5MG/325MG (Percocet 5MG/325MG) Tab 1 TABLET PO Q6H PRN for Pain for 3 Days, #10 TAB PAIN Phenazopyridine HCl (Pyridium) 200 Mg Tab 200 MG PO TID for Bladder Pain, #9 TAB Sertraline (Zoloft) 100 Mg Tab 100 MG PO noon, TAB Sulfamethoxazole-Trimethoprim (Bactrim Ds 800MG/160MG) 1 Tab Tab 1 TAB PO BID, #10 TAB Discharge Exam Up and walk, pleasant, pleasantly confused, conversational, no acute distress, no agitation Review of Systems: Constitutional: + problem reported (Review of system is unreliable because patient is dementia and confused), No fever, No chills, No sweats, No weight loss, No weakness, No fatigue Eyes: No worsening of vision, No eye pain, No redness, No discharge, No diplopia, No problem reported ENT: No hearing loss, No unusual epistaxis, No nasal symptoms, No sore throat, No tinnitus, No dental problems, No trouble swallowing, No problem reported Respiratory: No cough, No sputum, No wheezing, No shortness of breath, No dyspnea on exertion, No dyspnea at rest, No hemoptysis, No problem reported Cardiovascular: No chest pain, No orthopnea, No PND, No edema, No claudication, No palpitations, No problem reported Abdomen: No pain, No nausea, No vomiting, No diarrhea, No constipation, No GI bleeding, No problem reported Musculoskeletal: No joint pain, No muscle pain, No swelling, No calf pain, No problem reported Genitourinary - Male: No hematuria, No dysuria, No urinary frequency, No urinary urgency, No urinary hesitancy, No urinary retention, No urinary incontinence, No penile discharge, No lesions, No impotence, No problem reported Neurologic: No memory loss, No paralysis, No weakness, No numbness/tingling , No vertigo, No balance problems, No problem reported Psychiatric: No depression symptoms, No anhedonism, No anxiety, No insomnia , No substance abuse, No problem reported Endocrine: No fatigue, No excessive thirst, No excessive urination, No problem reported Hematologic / Lymphatic: No abnormal bleeding/bruising, No clotting problems , No swollen lymph nodes, No night sweats, No problem reported Physical Exam: General Appearance: WD/WN, + thin Eyes: normal inspection, PERRL ENT: normal ENT inspection, hearing grossly normal Neck: supple, no adenopathy, thyroid normal Respiratory/Chest: chest non-tender, no respiratory distress, no accessory muscle use, + decreased breath sounds Cardiovascular: regular rate, rhythm, no edema, no gallop, no JVD Abdomen / GI: normal bowel sounds, non tender, soft, no organomegaly, + pertinent finding (Duran catheter in place, with mild red urine, patient is on Pyridium) Extremities: normal inspection, no calf tenderness, normal capillary refill , no pedal edema, normal range of motion 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 UTI catheter related, stable and improving Neurogenic bladder, hx of bladder calculi, SP suprapubic catheter placement, tube intact draining well. Has been on IV abx, blood culture will be due 40 hours next p.m., urine culture unremarkable Urology signout, feel patient's mental status changes not related to source, they recommend patient need to be followed as outpatient, will discharge patient with a home antibiotic which was prescribed by urologist prior to this admission Altered mental status, Possible metabolic encephalopathy Possible delirium most likely r/t anesthesia , or his dementia, or uti. Haldol as needed, discussed with daughter about the risk and benefit of this medication, she agreed to have a few pills when discharged to home, otherwise daughter to have him follow-up with PCP Head CT was checked upon admission was not remarkable, I have checked TSH, was normal, however was not able to get vitamin B12, folate acid, Procalcitonin checked because patient refused to have the blood testing, PCP please follow-up Parkinson's disease Lewy body dementia hx Obstructive uropathy Above conditions stable continue current medication Fall precaution, Pain management, Talk to patient's daughter, Daughter is sure able to arrange 24 7 supervision at home Instructions / Follow-Up you have UTI catheter related Neurogenic bladder, hx of bladder calculi, SP suprapubic catheter placement, you need to follow up with as instructed as outpatient you ahve Altered mental status Possible metabolic encephalopathy, in base line now you have Lewy body dementia, need 24/7 supervision , fall precaution - you need to follow up with your primary care physician in 1 week, - take medication as instructed, never overdose or any misuse, or take with alcohol, because misuse of medicine may cause organ damage or , call your primary care physician if have questions of medicaitons. - call your primary care physician OR go to local emergency room if has any fever/chill, chest pain, shortness of breathing, nausea/vomiting/abdominal pain , facial droop/slurry speech/local weakness, or if has any questions. - fall precaution - diet as instructed - you need to follow up with your subspecialist, such as urologist Total Time Spent: Greater than 30 minutes This includes examination of the patient, discharge planning, medication reconciliation, and communication with other providers. Discharge Instructions Please refer to the electronic Patient Visit Report (Discharge Instructions) for additional information. Additional Copies To Dusty Rivera M.D.; Sheyla Bryan M.D.
[2017-06-30] MEDS ORDERED: VANCOMYCIN TROUGH ONE (01:30)
== END 2017-06-29 14:26 | disposition home health service (06) | DRG 698 ==
LOC: EDBD 13:10 → C.EDA 13:18 → C.MS2W 21:11 → ENRESERV 22:54
PROVIDERS: ADMIT Internal Medicine; ATTEND Hospitalist
DX: T83.511A Infection and inflammatory reaction due to indwelling urethral catheter, initial encounter (principal); G93.41 Metabolic encephalopathy; N39.0 Urinary tract infection, site not specified; R54 Age-related physical debility; G31.83 Neurocognitive disorder with Lewy bodies; F02.80 Dementia in other diseases classified elsewhere, unspecified severity, without behavioral disturbance, psychotic disturbance, mood disturbance, and anxiety; Z79.899 Other long term (current) drug therapy; Y83.1 Surgical operation with implant of artificial internal device as the cause of abnormal reaction of the patient, or of later complication, without mention of misadventure at the time of the procedure; Y84.6 Urinary catheterization as the cause of abnormal reaction of the patient, or of later complication, without mention of misadventure at the time of the procedure

== ENCOUNTER → 2017-06-26 | Day surgery (SDC) | payer OTHER, MEDICARE ==
[2017-06-19 09:20] VITALS: BMI 23.0
--- NOTE | 2017-06-19 10:02 | PAT Medication Instructions ---
Service Date Jun 19, 2017. Current Home Medication List Ciprofloxacin Tab (Cipro), 500 MG PO BID Multivitamin (Multivitamin), 1 TAB PO DAILY Oxycodone/Acetaminophen 5MG/325MG (Percocet 5MG/325MG), 1 TABLET PO Q6H PRN for Pain Phenazopyridine HCl (Pyridium), 200 MG PO TID Sertraline (Zoloft), 100 MG PO noon Medication Instructions For Your Scheduled Surgery -Continue per your surgeon's instructions: Phenazopyridine HCl (Pyridium), 200 MG PO TID Oxycodone/Acetaminophen 5MG/325MG (Percocet 5MG/325MG), 1 TABLET PO Q6H PRN for Pain - Hold the following medications the morning of surgery: Multivitamin (Multivitamin), 1 TAB PO DAILY - Take the following medications the morning of surgery with a sip of water: Ciprofloxacin Tab (Cipro), 500 MG PO BID - Take the following medications as scheduled the afternoon/night before surgery : Ciprofloxacin Tab (Cipro), 500 MG PO BID Sertraline (Zoloft), 100 MG PO noon If you have any questions please call us at [phone] or [phone] or [phone]
--- NOTE | 2017-06-19 10:57 | DIAGNOSTIC IMAGING REPORT ---
CHEST 2 VIEWS ROUTINE CLINICAL HISTORY: Preoperative chest COMPARISON STUDY: No previous studies for comparison. FINDINGS: The patient appears hyperinflated. The heart is normal in size. There is no focal pulmonary consolidation. There are no pleural effusions. There is no failure.[ IMPRESSION: No active disease in the chest. Electronically signed by: Lee Fernandez M.D. 06/19/2017 10:56 AM Dictated Date/Time: 06/19/2017 10:56 AM
[2017-06-19 11:22] LABS: HEMATOCRIT 38.9 % (42-52); HEMOGLOBIN 12.7 g/dL (14.0-18.0); MEAN CELL VOLUME 87.4 fL (80-100); MEAN CORPUSCULAR HEMOGLOBIN 28.5 pg (25-34); MEAN CORPUSCULAR HGB CONC 32.6 g/dl (32-36); MEAN PLATELET VOLUME 9.6 fL (7.4-10.4); PLATELET COUNT 204 K/uL (130-400); RED CELL DISTRIBUTION WIDTH CV 14.8 % (11.5-14.5); RED CELL DISTRIBUTION WIDTH SD 47.2 fL (36.4-46.3); WHITE BLOOD COUNT 6.96 K/uL (4.8-10.8)
[2017-06-19 11:38] LABS: CALCIUM 8.7 mg/dl (8.5-10.1); CREATININE 0.73 mg/dl (0.60-1.40); POTASSIUM 3.6 mmol/L (3.5-5.1)
[~2017-06-26] VITALS: Ht 177.8 cm; Wt 73.6 kg
[~2017-06-26] MED LIST changes: +ATROPINE SULFATE 0.1 MG/ML 5ML SYR IV PRN; +BELLADONNA/OPIUM SUPP 60 MG SUPP PR ONE; +CEFAZOLIN 2000MG IV PUSH 15 ML IV SCH; +EpHEDrine SULFATE INJ 50 MG/ML AMP IV PRN; +FENTANYL CITRATE INJ 50 MCG/1 ML 2 ML VIAL ONE; +HLD.5 PO; +LACTATED RINGER'S 1000ML 1,000 ML IV SCH; +LCTX PO; +LIDOCAINE HCL 2% 2 ML VIAL (20MG/ML) ONE; +LIDOCAINE/EPINEPHRINE 1% 20 ML VIAL ONE; +NURSING VERBAL MED ORDER ONE; +ONDANSETRON INJ 2 MG/ML 2 ML VIAL ONE; -OPTIRAY 320 IV PRN; +OXYBUTYNIN CHLORIDE 5 MG TAB PO ONE; +OXYCODONE/ACETAMINOPHEN 7.5-325 TAB PO PRN; +PHENAZOPYRIDINE HCL 200 MG TAB PO ONE; +PROPOFOL IV EMULSION 10 MG/ML 20 ML VIAL IV ONE; +SULF800T23 PO
[2017-06-26 06:12] VITALS: BP 156/90; PULSE 71; TEMP 36.9; O2SAT 98; BMI 23.0
[2017-06-26 06:14] VITALS: BP 156/90; PULSE 71; TEMP 36.9; O2SAT 98; Ht 177.8 cm; Wt 73.6 kg
--- NOTE | 2017-06-26 07:03 | History & Physical Bridge Note ---
H&P Re-Evaluation Bridge Note: I have examined the patient, reviewed the History & Physical and in the interval since the performance of the History & Physical I have noted the following changes of clinical significance: No changes noted
--- NOTE | 2017-06-26 07:07 | Discharge Instructions ---
Discharge Instructions Date of Service Jun 26, 2017. Admission Reason for Admission: Bladder Stones Discharge Discharge Diagnosis / Problem: Neurogenic bladder, Bladder Stone, Malfunctioning Suprapubic tube Discharge Goals Goal(s): Decrease discomfort, Improve function Activity Recommendations Activity Limitations: resume your previous activity Lifting Limitations: gradually increase as tolerated Exercise/Sports Limitations: gradually increase as tolerated Shower/Bathe: no limitations . Instructions / Follow-Up Instructions / Follow-Up May have abdominal pain. May have pelvic discomfort or flank pain. Call if any fever or chills. Okay to bandage around Suprapubic tube. Call if any issues. May have leakage. Return for venegas removal in 2-4 days. Monitor output. May have blood in urine. Current Hospital Diet Patient's current hospital diet: Discharge Diet Recommended Diet: Regular Diet Procedures Procedures Performed: Cystoscopy with cystolitholopaxy. Suprapubic tube removal/Excision of foreign body. Revision and placement Suprapubic tube. Pending Studies Studies pending at discharge: no Medical Emergencies . Who to Call and When: Medical Emergencies: If at any time you feel your situation is an emergency, please call 911 immediately. . Non-Emergent Contact Non-Emergency issues call your: Primary Care Provider, Urologist Call Non-Emergent contact if: you have a fever, temperature is above 101, temperature is above 101.5, your pain is not controlled, your pain is worsening . . "Provider Documentation" section prepared by Michael Lawton. .
--- NOTE | 2017-06-26 08:17 | [facility] Operative Report ---
Operative Report Operative Date Jun 26, 2017. Pre-Operative Diagnosis Neurogenic bladder with bladder stones. Malfunctioning Suprapubic tube with foreign body retention. Post-Operative Diagnosis Same Procedure(s) Performed Cystoscopy with cystolitholopaxy. Suprapubic tube removal/Excision of foreign body. Revision and placement Suprapubic tube. Surgeon Jered Estimated Blood Loss Minimal Findings Encrusted and retained suprapubic tube. Bladder stones in base of bladder. Specimens Bladder Stones for analysis Drains 20 Fr Duran catheter. 20 Fr Suprapubic tube. Anesthesia Type General Complication(s) none Disposition Recovery Room / PACU Indications Retained Suprapubic tube, unable to be removed. Severe UTI. Risks and benefits discussed. Patient completed PO antibiotic regimen. Description of Procedure Patient was consented and brought back to the operating room. Patient was placed under anesthesia in the supine position and moved to the dorsal lithotomy position. Patient was prepped and draped in the regular sterile fashion. A time out was completed. A 30degree Cystoscope was placed into the bladder and the entire bladder was examined. The UO's were identified. The large stone burden was identified. Approx 4 cm of stone was visualized. The stone was crushed and irrigated. The stone encrusting on the catheter was dislodged and irrigated. With the area clear of stone the entrance of the suprapubic tract in the bladder was visualized. The are was found to be clear of further encrustation. Gloves were changed and local anesthetic was placed at that skin near the SP opening. A wire was placed down the track. The wire was visualized in the bladder. The old malfunctioning tube was removed. A scalpel was used to further open the skin which had contracted and scarred. A 20 [employer] tip was placed and visualized in the bladder. The balloon was elevated. The catheter was found in good position. A 2-0 Nylon was used to secure the catheter at the skin. Bandages were placed after the patient was cleaned. The bladder was once more examined. Moderate irritation and bolus edema was noted on the base. No other lesions. The bladder was emptied. It was filled once more and found to be clear of sediment. The scope was removed. A 20 Fr Coude was placed. The patient was cleaned, aroused from anesthesia, and transferred to the pacu in stable condition having tolerated the procedure well with no complications. I was present and participated in all aspects of the procedure. The patient will be monitored in the PACU until transferred. I attest to the content of the Intraoperative Record and any orders documented therein. Any exceptions are noted below.
[2017-06-26 09:01] VITALS: BP 141/86; PULSE 73; TEMP 37.2; O2SAT 98
--- NOTE | 2017-06-26 09:14 | Anesthesiology Progress Note ---
Anesthesia Post Op Note Date & Time Jun 26, 2017 at 09:14 Vital Signs Pain Intensity: 0 Vital Signs Past 12 Hours Date Time Temp Pulse Resp B/P (MAP) Pulse Ox O2 Delivery O2 Flow Rate FiO2 06/26/17 09:05 85 18 161/86 97 Room Air 06/26/17 08:55 36.4 88 18 153/85 97 Room Air 06/26/17 08:45 87 15 170/90 97 Room Air 06/26/17 08:35 81 16 173/89 98 Room Air 06/26/17 08:25 36.3 80 16 162/85 100 Oxymask 5 06/26/17 06:14 36.9 71 18 156/90 (112) 98 Room Air Notes Mental Status: alert / awake / arousable, participated in evaluation Pt Amnestic to Procedure: Yes Nausea / Vomiting: adequately controlled Pain: adequately controlled Airway Patency, RR, SpO2: stable & adequate BP & HR: stable & adequate Hydration State: stable & adequate Anesthetic Complications: no major complications apparent
[2017-06-26 09:50] VITALS: BP 136/79; PULSE 67; TEMP 37.2; O2SAT 99
[2017-06-26 10:20] VITALS: BP 128/68; PULSE 66; TEMP 37.2; O2SAT 97
== END | disposition home or self-care (01) ==
LOC: C.ACU 05:31
PROVIDERS: ATTEND Urology
DX: N99.512 Cystostomy malfunction (principal); N21.0 Calculus in bladder; N39.0 Urinary tract infection, site not specified; N31.9 Neuromuscular dysfunction of bladder, unspecified; G47.33 Obstructive sleep apnea (adult) (pediatric); G20 Parkinson's disease; F02.80 Dementia in other diseases classified elsewhere, unspecified severity, without behavioral disturbance, psychotic disturbance, mood disturbance, and anxiety; M19.90 Unspecified osteoarthritis, unspecified site; F32.9 Major depressive disorder, single episode, unspecified; Z87.440 Personal history of urinary (tract) infections; Z85.828 Personal history of other malignant neoplasm of skin

== ENCOUNTER 2018-01-05 19:47 | Inpatient (IN) ==
[2018-01-05 20:30] LABS: Basophils # (auto) 0.02 K/uL (0-0.2); Basophils % (auto) 0.2 %; Eosinophils # (auto) 0.25 K/uL (0-0.5); Eosinophils % (auto) 2.8 %; Hematocrit (blood only) 40.6 % (42-52); Hemoglobin 12.8 g/dL (14.0-18.0); Immature Granulocytes # (auto) 0.02 K/uL (0.00-0.02); Immature Granulocytes % (auto) 0.2 %; Lymphocytes # (auto) 1.41 K/uL (1.2-3.4); Lymphocytes % (auto) 15.8 %; Mean Corpuscular Hgb Conc 31.5 g/dL (32-36); Mean Platelet Volume 9.8 fL (7.4-10.4); Monocytes # (auto) 0.55 K/uL (0.11-0.59); Monocytes % (auto) 6.2 %; Neutrophils # (auto) 6.68 K/uL (1.4-6.5); Neutrophils % (auto) 74.8 %; Platelet Count 218 K/uL (130-400); RDW Coefficient of Variation 14.8 % (11.5-14.5); RDW Standard Deviation 47.9 fL (36.4-46.3); Red Blood Count 4.56 M/uL (4.7-6.1); White Blood Count 8.93 K/uL (4.8-10.8)
[2018-01-05 20:45] LABS: Prothrombin Time 10.4 Seconds (9.0-12.0)
[2018-01-05 20:49] LABS: Albumin Level 3.8 gm/dl (3.4-5.0); BUN Creatinine Ratio 14.4 (10-20); Calcium 8.3 mg/dl (8.5-10.1); Creatinine Clr Calc Pharmacy 63.3 ml/min; Est GFR (African American) 69.8; Est GFR (Non-African American) 60.2; Potassium 3.6 mmol/L (3.5-5.1)
[2018-01-05 20:52] LABS: Albumin Globulin Ratio 1.1 (0.9-2); Bilirubin,Total 0.3 mg/dl (0.1-1); Globulin 3.4 gm/dl (2.5-4.0); Total Protein 7.2 gm/dl (6.4-8.2)
[2018-01-05 22:43] LABS: Appearance Urine Clear (Clear); Bilirubin Urine Negative (Negative); Color Urine Yellow; Glucose Urine UA Negative (Negative); Ketones Urine Negative (Negative); Leukocyte Esterase Urine 1+ (Negative); Nitrite Urine Positive (Negative); Protein Urine 2+ (Negative); Specific Gravity Urine 1.025 (1.000-1.030); Urobilinogen Urine Negative (Negative); pH Urine 7.5 (4.5-7.5)
[2018-01-05 22:47] LABS: Bacteria Urine 1+ (Negative); RBC Urine >30 /hpf (0-4); WBC Urine >30 /hpf (0-5)
[2018-01-07 08:22] LABS: Hematocrit (blood only) 38.8 % (42-52); Hemoglobin 12.6 g/dL (14.0-18.0); Mean Corpuscular Hgb Conc 32.5 g/dL (32-36); Mean Corpuscular Volume 86.2 fL (80-100); Mean Platelet Volume 9.3 fL (7.4-10.4); Platelet Count 194 K/uL (130-400); RDW Coefficient of Variation 14.3 % (11.5-14.5); RDW Standard Deviation 45.3 fL (36.4-46.3); White Blood Count 14.89 K/uL (4.8-10.8)
[2018-01-07 08:40] LABS: BUN Creatinine Ratio 11.1 (10-20); Calcium 8.2 mg/dl (8.5-10.1); Creatinine Clr Calc Pharmacy 71.1 ml/min; Est GFR (African American) 80.3; Est GFR (Non-African American) 69.3
[2018-01-08 03:40] LABS: Basophils # (auto) 0.01 K/uL (0-0.2); Basophils % (auto) 0.1 %; Eosinophils # (auto) 0.03 K/uL (0-0.5); Eosinophils % (auto) 0.2 %; Hematocrit (blood only) 35.5 % (42-52); Hemoglobin 11.4 g/dL (14.0-18.0); Immature Granulocytes # (auto) 0.06 K/uL (0.00-0.02); Immature Granulocytes % (auto) 0.4 %; Lymphocytes # (auto) 0.71 K/uL (1.2-3.4); Lymphocytes % (auto) 5.1 %; Mean Corpuscular Hgb Conc 32.1 g/dL (32-36); Mean Corpuscular Volume 86.6 fL (80-100); Mean Platelet Volume 9.7 fL (7.4-10.4); Monocytes # (auto) 0.95 K/uL (0.11-0.59); Monocytes % (auto) 6.8 %; Neutrophils # (auto) 12.15 K/uL (1.4-6.5); Neutrophils % (auto) 87.4 %; Platelet Count 187 K/uL (130-400); RDW Coefficient of Variation 14.3 % (11.5-14.5); White Blood Count 13.91 K/uL (4.8-10.8)
[2018-01-08 03:59] LABS: Albumin Level 2.8 gm/dl (3.4-5.0); BUN Creatinine Ratio 10.7 (10-20); Calcium 8.2 mg/dl (8.5-10.1); Creatinine Clr Calc Pharmacy 62.3 ml/min; Est GFR (African American) 68.4; Potassium 4.6 mmol/L (3.5-5.1)
[2018-01-08 04:02] LABS: Albumin Globulin Ratio 0.8 (0.9-2); Bilirubin,Total 0.7 mg/dl (0.1-1); Globulin 3.5 gm/dl (2.5-4.0); Total Protein 6.3 gm/dl (6.4-8.2)
[2018-01-09 08:17] LABS: Basophils # (auto) 0.01 K/uL (0-0.2); Basophils % (auto) 0.1 %; Eosinophils # (auto) 0.08 K/uL (0-0.5); Eosinophils % (auto) 0.7 %; Hematocrit (blood only) 38.3 % (42-52); Hemoglobin 12.3 g/dL (14.0-18.0); Immature Granulocytes # (auto) 0.03 K/uL (0.00-0.02); Immature Granulocytes % (auto) 0.3 %; Lymphocytes % (auto) 7.7 %; Mean Corpuscular Hgb Conc 32.1 g/dL (32-36); Mean Corpuscular Volume 85.3 fL (80-100); Mean Platelet Volume 9.8 fL (7.4-10.4); Neutrophils # (auto) 9.93 K/uL (1.4-6.5); Neutrophils % (auto) 85.2 %; Platelet Count 206 K/uL (130-400); RDW Coefficient of Variation 14.4 % (11.5-14.5); RDW Standard Deviation 45.2 fL (36.4-46.3); Red Blood Count 4.49 M/uL (4.7-6.1); White Blood Count 11.65 K/uL (4.8-10.8)
[2018-01-09 08:30] LABS: BUN Creatinine Ratio 9.9 (10-20); Calcium 8.7 mg/dl (8.5-10.1); Creatinine Clr Calc Pharmacy 83.8 ml/min; Est GFR (African American) 97.9; Est GFR (Non-African American) 84.4; Magnesium 1.9 mg/dl (1.8-2.4); Potassium 3.7 mmol/L (3.5-5.1)
== END 2018-01-15 17:43 | disposition hospice, inpatient (51) ==
LOC: ED 19:47 → SUATTDRO 01-06 01:25 → 4W 01-06 01:25